=== PATIENT | male | born 1960 | race African-American/Black ===

== ENCOUNTER → 2018-08-07 09:40 | Outpatient (CLI) | payer MEDICAID, SELFPAY ==
[2018-08-07 11:02] LABS: Erythrocyte Sedimentation Rate 3 mm/hr (0-20)
== END ==
PROVIDERS: Family Provider Family Medicine; PCP Family Medicine; Referring Provider Psychiatry & Neurology Neurology; Visit Provider Psychiatry & Neurology Neurology
DX: R51 Headache (principal)
CPT/HCPCS: 36415; 85652

== ENCOUNTER → 2018-08-27 06:50 | Outpatient (CLI) | payer MEDICAID, SELFPAY ==
--- NOTE | 2018-08-27 07:17 | MRI_ITS ---
STUDY: MRI BRAIN WITHOUT CONTRAST REASON FOR EXAM: Male, 58 years old. Headaches TECHNIQUE: Standardized multiplanar fat and water weighted pulse sequences were obtained. COMPARISON: CT head 07/10/2016. FINDINGS: There is mild cerebral atrophy with widening of the extra-axial spaces and ventricular dilatation. There are a limited number of small white matter hyperintensities, distributed throughout the deep white matter tracts of the cerebral hemispheres, consistent with mild chronic white matter ischemic changes. Normal bilateral basal ganglia. Normal thalami. There is no extra-axial fluid accumulation. Normal flow voids within the major intracranial circulation suggesting patency by spin echo criteria. Normal sella turcica, pituitary gland, infundibular stalk, optic chiasm and hypothalamus. Normal tectal plate and pineal gland. Normal midbrain, joaquin and medulla. Normal cerebellum. Normal basal cisterns. Normal bilateral temporal bones. Normal bilateral internal auditory canals. No demonstrated orbital abnormality, within the constraints of a routine brain study. There is a small right maxillary sinus retention cyst. Normal calvarium and skull base. Normal visualized soft tissue structures. Normal visualized upper cervical spine. MRI/Brain without Contrast IMPRESSION: No acute intracranial abnormality. Mild chronic involutional changes. Electronically Signed: Sharon Alexis, at 12:51 EDT Tel , Service support ,
== END ==
PROVIDERS: Family Provider Family Medicine; PCP Family Medicine; Referring Provider Psychiatry & Neurology Neurology; Visit Provider Psychiatry & Neurology Neurology
DX: R51 Headache (principal)
CPT/HCPCS: 70551

== ENCOUNTER → 2021-11-29 | Outpatient (REF) | payer SELFPAY | END | disposition home or self-care (01) | LOC: OLS.AHA 10:13 | PROVIDERS: PCP Family Medicine; Visit Provider Family Medicine | DX: E72.20 Disorder of urea cycle metabolism, unspecified (principal) | CPT/HCPCS: 82140 ==

== ENCOUNTER 2023-09-30 19:50 | Observation (INO) | payer MEDICAID, SELFPAY ==
[2023-09-30 19:53] VITALS: BP 130/67; PULSE 92; RESP 18; TEMP 36.4; O2SAT 98; BMI 50.1
[2023-09-30] MEDS: MethylPREDNISolone 125 MG/2 ML Vial IV (20:13)
[2023-09-30] MEDS: Famotidine 200 MG/20 ML MDV 20 MG in 0.9% Normal Saline (Pres. free 8 ML 300 MG IV (20:14)
[2023-09-30] MEDS: 0.9% Normal Saline (1000mL) 1,000 ML 150 ML IV (20:14)
[2023-09-30 20:17] LABS: Absolute Lymphocyte Count 3.07 X10^3/uL (0.83-4.51); Absolute Neutrophil Count 4.8 X10^3/uL (2.0-7.7); Basophil# 0.02 X10^3/uL; Basophil% 0.2 % (0-1); Eosinophil# 0.18 X10^3/uL; Eosinophils% 2.1 % (0-5); Hematocrit 38.8 % (40-54); Hemoglobin 12.3 g/dL (13.0-16.5); Lymphocyte # 3.07 X10^3/ul (0.83-4.51); Lymphocyte % 35.2 % (19-41); Mean Corp Hgb Conc 31.7 g/dL (32-36); Mean Corpuscular Hgb 31.9 pg (27.0-32.0); Mean Corpuscular Volume 100.8 fL (80-94); Mean Platelet Vol. 8.5 fl (6.2-12.0); Monocyte# 0.65 X10^3/uL; Monocyte% 7.4 % (0-10); NRBC Flagged by Analyzer 0 % (0-5); Neutrophil # 4.79 X10^3/uL (2.7-7.7); Neutrophil % 54.9 % (47-70); Platelet Count 274 K/mm3 (150-450); RBC Distribution Width CV 13.4 % (11.6-14.6); RBC Distribution Width SD 49.9 fl (35.1-43.9); Red Blood Count 3.85 M/mm3 (4.6-6.2); White Blood Count 8.7 K/mm3 (4.4-11.0)
[2023-09-30 20:31] LABS: Anion Gap 2 (5-15); BUN 16 mg/dL (7-18); BUN/Creat Ratio 14.3 RATIO (10-20); Calcium,Total 8.9 mg/dL (8.5-10.1); Chloride 106 mmol/L (98-107); Creatinine, Serum 1.12 mg/dL (0.70-1.30); EST Glomerular Filtration Rate 71 mL/min (>60); Est Glom Filt Rate - Afr Amer 86 mL/min (>60); Estimated Creatinine Clearance 86.74 ml/min; Glucose 107 mg/dL (74-106); Potassium 4.2 mmol/L (3.5-5.1); Sodium Level 136 mmol/L (136-145)
--- NOTE | 2023-09-30 20:36 | EDS_ITS ---
HPI History of Present Illness Chief Complaint: Allergic Reaction Informant: patient and SNF Narrative Narrative: Patient presents via EMS from [facility] secondary to facial swelling and hives. Patient reportedly ate dinner around 5:30 PM. He had fish, coleslaw, and peaches. Shortly after eating dinner staff member who is with him noted some swelling over his cheeks and lips on his face. He developed hives on his trunk. Patient was given 50 mg of p.o. Benadryl and transported via EMS. Patient arrives here at approximately 8 PM with continued swelling to his lower face to include upper and lower lip. He does not have significant tongue edema. He is tolerating secretions and is speaking without difficulty. Patient is also noted to be on lisinopril. Nursing staff notes that the hives on his lower back and abdomen are already improving. [facility] Medical History Acute insomnia Anemia Bipolar 2 disorder Chronic tension headache Conduct disorder, childhood onset type COPD (chronic obstructive pulmonary disease) Cutaneous abscess of neck Delusional disorder Diabetes mellitus Essential hypertension Hyperlipemia Hyperlipidemia Impulse disorder Major depressive disorder Mild intellectual disability Morbid obesity Need for assistance with personal care Paranoid schizophrenia Paraphilia, unspecified Peripheral vascular disease Primary open angle glaucoma Schizoaffective disorder Unspecified atherosclerosis of [place] arteries of extremities, unspecified extremity Allergy/AdvReac Type Severity Reaction Status Date / Time No Known Allergies Allergy Verified 09/30/23 19:58 Social History Smoking Status: Current every day smoker tobacco type: cigarettes ROS ROS ED Constitutional Constitutional ED: Denies fever(s) Eyes Eyes: Denies change in vision ENT ENT ED: Denies rhinorrhea Cardiovascular Cardiovascular: Denies chest pain Respiratory/Chest Respiratory/Chest: Denies cough or dyspnea Gastrointestinal Gastrointestinal: Denies abdominal pain Integumentary Reports rash Neurologic Neurologic: Denies headache(s) EXAM Physical Exam Const Vital Signs: 09/30/23 19:53 Temperature 97.5 F L Temperature Source Temporal Pulse Rate 92 Respiratory Rate 18 Blood Pressure 130/67 H Blood Pressure Mean 88 Pulse Ox 98 Oxygen Delivery Method Room Air Positive obese Nutritional Appearance: obese HEENT HEENT Narrative: Edema of the lower face including the upper and lower lips. No significant skin erythema or warmth noted. I do not appreciate significant tongue edema. Eyes EOMs intact bilaterally Eyes Narrative: Mild edema to the eyelids bilaterally. Chest Wall inspection of chest normal and palpation of chest normal Resp normal respiratory effort and clear to auscultation bilaterally Cardio regular rate and regular rhythm GI non-tender Extremity normal to inspection Skin Skin Narrative: Very faint urticarial lesions noted over the lower back. MDM MDM MDM Narrative Medical decision making narrative: Patient placed on monitoring coordinator. IV line established. Patient given Pepcid and Solu-Medrol here along with IV fluids. Labwork obtained to evaluate for leukocytosis, anemia, and electrolyte derangement. Again, patient was given 50 mg of p.o. Benadryl prior to arrival. Lab Data Attestation: I reviewed the patient's lab results. Labs: Laboratory Results - last 24 hr 09/30/23 19:50 WBC 8.7 RBC 3.85 L Hgb 12.3 L Hct 38.8 L MCV 100.8 H MCH 31.9 MCHC 31.7 L RDW Std Deviation 49.9 H RDW Coeff of [place] 13.4 Plt Count 274 MPV 8.5 Immature Gran % (Auto) 0.200 Neut % (Auto) 54.9 Lymph % (Auto) 35.2 [place] % (Auto) 7.4 Eos % (Auto) 2.1 Baso % (Auto) 0.2 Absolute Neuts (auto) 4.8 Absolute Lymphs (auto) 3.07 Nucleated RBC % 0 Sodium 136 Potassium 4.2 Chloride 106 Carbon Dioxide 28.0 Anion Gap 2 L BUN 16 Creatinine 1.12 Estim Creat Clear Calc 86.74 Est GFR (MDRD) Af Amer 86 Est GFR (MDRD) Non-Af 71 BUN/Creatinine Ratio 14.3 Glucose 107 H Calcium 8.9 Treatment and Re-Evaluation :: CBC was a white count of 8.7 with normal differential. Hemoglobin is 12.3. Chemistry studies unremarkable. Glucose is 107. On repeat evaluation lip swelling seems to be slightly improved. No tongue edema is noted. I will speak with hospitalist regarding observation overnight. Discharge Plan Triage Chief Complaint: Allergic Reaction ED Provider: Steph Mclaughlin Dx/Rx/DC Orders Clinical Impression: Angioedema Primary Care Provider: Rd Garcia Referrals: Rd Garcia MD [Primary Care Provider] - Disposition Disposition: Acute Care Hospital [facility]
--- NOTE | 2023-09-30 20:52 | HP.PCM.HOS_ITS ---
HPI - General General Date of Admission: 09/30/23 Date of Service: 09/30/23 Chief Complaint: Angioedema, hives following meal, possibly food related HPI Narrative The patient is a 63 y/o M w/ PMHx: Morbid Obesity, Schizoaffective disorder/Pa ranoid schizophrenia/Delusional disorder/Anxiety and Depression/Bipolar disorder, COPD, Chronic headaches, HTN, HLD, Mild Intellectual Disability, Chronic anemia, Tobacco use who presents to the [facility] ED on 09/30/23 with history of presenting from skilled facility following dinner intake at approximately 5:30 PM as noted fish, close 1 peaches and immediately following had onset of swelling over his cheeks as well as his lips and eventually developed hives over his trunk with ministration of Benadryl 50 mg p.o. x 1 and EMS call arriving approximately 8 PM the ED with continued swelling to the lower face as well as the upper and lower lips with no significant tongue edema and toleration of secretions and speaking ability maintained. In the ED upon arrival also noted hives over the patient's entire back and abdomen but seem to improve through ED stay. Workup in the ED included T97.5, heart rate 92, BP 130/67, respiratory rate 18, 98% on room air, CBC with WBC 8.7, hemoglobin 12.3, MCV 100.8, platelet 274 without marked shift, BMP with glucose 107 otherwise unremarkable. In the ED patient ministered normal saline, Solu-Medrol 125 mg IV x 1 as well as famotidine 20 mg IV. Acute angioedema, potentially related with lisinopril: Will admit to the PCU to be very cautious given facial involvement and significant oral airway involvement, closely monitor for any intubation needs and airway concerns, will continue IV Solu-Medrol, IV Benadryl as well as IV famotidine to be cautious, will maintain n.p.o. status until clinically improving, hold all concerning medications including lisinopril but given dinner intake and immediate onset following to be cautious would benefit from formal allergy testing with ENT potentially on outpatient basis. Macrocytic anemia, chronic per chart history: Admission hemoglobin 12.3, MCV 100.8, baseline hemoglobin unknown is no previous labs for comparison, will continue to trend CBC to elucidate chronicity. Morbid Obesity: Weight loss and lifestyle changes encouraged. DVT prophylaxis: SCDs. [facility] Medical History Acute insomnia Anemia Bipolar 2 disorder Chronic tension headache Conduct disorder, childhood onset type COPD (chronic obstructive pulmonary disease) Cutaneous abscess of neck Delusional disorder Diabetes mellitus Essential hypertension Hyperlipemia Hyperlipidemia Impulse disorder Major depressive disorder Mild intellectual disability Morbid obesity Need for assistance with personal care Paranoid schizophrenia Paraphilia, unspecified Peripheral vascular disease Primary open angle glaucoma Schizoaffective disorder Unspecified atherosclerosis of [place] arteries of extremities, unspecified extremity Allergy/AdvReac Type Severity Reaction Status Date / Time No Known Allergies Allergy Verified 09/30/23 19:58 Social History Smoking Status: Current every day smoker tobacco type: cigarettes Vital Signs Vital Signs Vital Signs: 09/30/23 19:53 Temperature 97.5 F L Temperature Source Temporal Pulse Rate 92 Respiratory Rate 18 Blood Pressure 130/67 H Blood Pressure Mean 88 Pulse Ox 98 Oxygen Delivery Method Room Air Weight Weight: 292 lb 3.2 oz Body Mass Index (BMI) 50.1 Results Lab / Micro Data 09/30/23 19:50 09/30/23 19:50 Labs: Laboratory Results - last 24 hr 09/30/23 19:50: WBC 8.7, RBC 3.85 L, Hgb 12.3 L, Hct 38.8 L, MCV 100.8 H, MCH 31.9, MCHC 31.7 L, RDW Std Deviation 49.9 H, RDW Coeff of [place] 13.4, Plt Count 274, MPV 8.5, Immature Gran % (Auto) 0.200, Neut % (Auto) 54.9, Lymph % (Auto) 35.2, [place] % (Auto) 7.4, Eos % (Auto) 2.1, Baso % (Auto) 0.2, Absolute Neuts (auto) 4.8, Absolute Lymphs (auto) 3.07, Nucleated RBC % 0, Sodium 136, Potassium 4.2, Chloride 106, Carbon Dioxide 28.0, Anion Gap 2 L, BUN 16, Creatinine 1.12, Estim Creat Clear Calc 86.74, Est GFR (MDRD) Af Amer 86, Est GFR (MDRD) Non-Af 71, BUN/Creatinine Ratio 14.3, Glucose 107 H, Calcium 8.9
--- NOTE | 2023-09-30 20:52 | PCM.HP.STD ---
HPI - General General Date of Admission: 09/30/23 Date of Service: 09/30/23 Chief Complaint: Angioedema, hives following meal, possibly food related HPI Narrative The patient is a 63 y/o M w/ PMHx: Morbid Obesity, Schizoaffective disorder/Paranoid schizophrenia/Delusional disorder/Anxiety and Depression/Bipolar disorder, COPD, Chronic headaches, HTN, HLD, Mild Intellectual Disability, Chronic anemia, Tobacco use who presents to the [facility] ED on 09/30/23 with history of presenting from skilled facility following dinner intake at approximately 5:30 PM as noted fish, close 1 peaches and immediately following had onset of swelling over his cheeks as well as his lips and eventually developed hives over his trunk with ministration of Benadryl 50 mg p.o. x 1 and EMS call arriving approximately 8 PM the ED with continued swelling to the lower face as well as the upper and lower lips with no significant tongue edema and toleration of secretions and speaking ability maintained. In the ED upon arrival also noted hives over the patient's entire back and abdomen but seem to improve through ED stay. Staff from the facility is present and does state that he had some kind of fish or potentially shellfish kalyn for dinner but they are uncertain. Discussed at length and recommended they obtain this information. Workup in the ED included T97.5, heart rate 92, BP 130/67, respiratory rate 18, 98% on room air, CBC with WBC 8.7, hemoglobin 12.3, MCV 100.8, platelet 274 without marked shift, BMP with glucose 107 otherwise unremarkable. In the ED patient ministered normal saline, Solu-Medrol 125 mg IV x 1 as well as famotidine 20 mg IV. [facility] Medical History (Updated 09/30/23 @ 21:[address] Daisy Gibson MD) Anemia Bipolar 2 disorder Chronic tension headache Conduct disorder, childhood onset type COPD (chronic obstructive pulmonary disease) Cutaneous abscess of neck Delusional disorder Diabetes mellitus Essential hypertension Hyperlipemia Hyperlipidemia Impulse disorder Major depressive disorder Mild intellectual disability Morbid obesity Need for assistance with personal care Paranoid schizophrenia Paraphilia, unspecified Peripheral vascular disease Primary open angle glaucoma Schizoaffective disorder Unspecified atherosclerosis of [place] arteries of extremities, unspecified extremity Allergy/AdvReac Type Severity Reaction Status Date / Time No Known Allergies Allergy Verified 09/30/23 19:58 unable to obtain (Patient does not know his family history nor does staff from his facility.) Surgical History (Updated 09/30/23 @ 21:[address] Daisy Gibson MD) No history of previous surgery Social History (Updated 09/30/23 @ 21:[address] Daisy Gibson MD) household members: none housing: other details: Skilled facility. Smoking Status: Current every day smoker tobacco type: cigarettes Smoking packs per day: 0.5 Smoking cigarettes per day: 10.0 alcohol intake: never substance use type: does not use ROS ROS Narrative Admission Review of Systems: CONSTITUTIONAL: No weight loss, fever, chills, weakness or fatigue. HEENT: + Upper and lower lip swelling as well as cheek/facial swelling. No oropharynx swelling or swelling of the tongue. Eyes: No visual loss, blurred vision, double vision or yellow sclerae. Ears, Nose, Throat: No hearing loss, sneezing, congestion, runny nose or sore throat. SKIN: No rash or itching, lesions, wounds. CARDIOVASCULAR: No chest pain, chest pressure or chest discomfort, palpitations, edema, orthopnea, syncopal events. RESPIRATORY: No shortness of breath, cough or sputum, wheezing, hemoptysis. GASTROINTESTINAL: No anorexia, nausea, vomiting or diarrhea, abdominal pain, melena, BRBPR. GENITOURINARY: No dysuria, frequency, urgency or retention. NEUROLOGICAL: + Chronic mild intellectual disability/delay. No headache, dizziness, syncope, paralysis, ataxia, numbness or tingling in the extremities, focal weakness, change in bowel or bladder control, seizure. MUSCULOSKELETAL: No muscle, back pain, joint pain or stiffness. HEMATOLOGIC: + Chronic anemia, no specific history of easy bleeding/bruising. LYMPHATICS: No enlarged nodes. No history of splenectomy. PSYCHIATRIC: + Significant psychiatric history with Schizoaffective disorder/Paranoid schizophrenia/Delusional disorder/Anxiety and Depression/Bipolar disorder. ENDOCRINOLOGIC: No reports of sweating, cold or heat intolerance. No polyuria or polydipsia. ALLERGIES: No history of asthma, hives, eczema or rhinitis. Vital Signs Vital Signs Vital Signs: 09/30/23 19:53 Temperature 97.5 F L Temperature Source Temporal Pulse Rate 92 Respiratory Rate 18 Blood Pressure 130/67 H Blood Pressure Mean 88 Pulse Ox 98 Oxygen Delivery Method Room Air Weight Weight: 292 lb 3.2 oz Body Mass Index (BMI) 50.1 Physical Exam Narrative Physical Examination: General: Awake, alert, oriented to self, place and recent events, does have chronic intellectual delay with notable underlying psychiatric history, remains cooperative, seated upright in the ED bed, no acute distress, denies any significant itching or difficulty with his airway and is already asking for food. Skin: Normal color, normal turgor, no icterus, no cyanosis except for recent hives to the torso which have already started to improve. HEENT: AT/NC, EOMI, PERRLA, mildly dry MM, notable upper and lower lip swelling as well as cheek swelling but the oropharynx is unaffected and the tongue is normal size, no carotid bruits, difficult to discern JVD given swelling of the lower cheek and upper neck region as well as habitus. Lungs: Diminished, greater bases, appropriate effort, no rales, ronchi or wheezing. Heart: Regular rate and rhythm; no gallop, rub audible. Abdomen: Soft, morbidly obese, NTTP, distant bowel sounds, difficult to determine distention and HSM given habitus. Extremities: No cyanosis, no clubbing, chronic lower extremity edema. Neurological: Patient awake, alert, oriented as noted, cognitive function decreased baseline with underlying intellectual delay but appears currently baseline intact; pupils equally reactive to light and accommodation, cranial nerves grossly normal, moving all 4 extremities, no focal deficits, strength preserved. Psychiatric: Affect appears normal, asking for food, seems unaffected by his current status, no acute evidence of depressive or anxiety feelings but does have significant underlying psychiatric history. Results Lab / Micro Data 09/30/23 19:50 09/30/23 19:50 Labs: Laboratory Results - last 24 hr 09/30/23 19:50: WBC 8.7, RBC 3.85 L, Hgb 12.3 L, Hct 38.8 L, MCV 100.8 H, MCH 31.9, MCHC 31.7 L, RDW Std Deviation 49.9 H, RDW Coeff of [place] 13.4, Plt Count 274, MPV 8.5, Immature Gran % (Auto) 0.200, Neut % (Auto) 54.9, Lymph % (Auto) 35.2, [place] % (Auto) 7.4, Eos % (Auto) 2.1, Baso % (Auto) 0.2, Absolute Neuts (auto) 4.8, Absolute Lymphs (auto) 3.07, Nucleated RBC % 0, Sodium 136, Potassium 4.2, Chloride 106, Carbon Dioxide 28.0, Anion Gap 2 L, BUN 16, Creatinine 1.12, Estim Creat Clear Calc 86.74, Est GFR (MDRD) Af Amer 86, Est GFR (MDRD) Non-Af 71, BUN/Creatinine Ratio 14.3, Glucose 107 H, Calcium 8.9 Assessment & Plan Assessment/Plan (1) Angioedema: PLAN: Plan The patient is a 63 y/o M w/ PMHx: Morbid Obesity, Schizoaffective disorder/Paranoid schizophrenia/Delusional disorder/Anxiety and Depression/Bipolar disorder, COPD, Chronic headaches, HTN, HLD, Mild Intellectual Disability, Chronic anemia, Tobacco use who presents to the [facility] ED on 09/30/23 with history of presenting from skilled facility following dinner intake at approximately 5:30 PM as noted fish, close 1 peaches and immediately following had onset of swelling over his cheeks as well as his lips and eventually developed hives over his trunk with ministration of Benadryl 50 mg p.o. x 1 and EMS call arriving approximately 8 PM the ED with continued swelling to the lower face as well as the upper and lower lips with no significant tongue edema and toleration of secretions and speaking ability maintained. #1. Acute angioedema, potentially related with lisinopril versus food given the fact that not only is angioedema present but also hives to the torso present: Will admit to the PCU to be cautious given facial involvement, airway appears well with no swelling of the tongue, will continue IV Solu-Medrol, IV Benadryl as well as IV famotidine to be cautious, will maintain n.p.o. status until assure continued clinical improving, hold all concerning medications including lisinopril but given dinner intake and immediate onset following in addition to notable hives to be cautious would benefit from formal allergy testing with ENT potentially on outpatient basis. Encourage staff to obtain information on recent food intake. #2. Macrocytic anemia, chronic per chart history: Admission hemoglobin 12.3, MCV 100.8, baseline hemoglobin unknown is no previous labs for comparison, will continue to trend CBC to elucidate chronicity. #3. Hypertension: Verified the patient was on lisinopril which we held and labeled as an allergy to be cautious. Awaiting further clarification of his medications and in the interim will maintain on PRN hydralazine. #4. Hyperlipidemia: Unclear what patient medications are specifically, awaiting for clarification from skilled facility. #5. Chronic COPD: Will maintain on ATC budesonide therapy, PRN albuterol, HOB, IS parameters. #6. Schizoaffective disorder/Paranoid schizophrenia/Delusional disorder/Anxiety and Depression/Bipolar disorder complicated by mild Intellectual Disability: Awaiting further clarification of patient medications from facility, will continue once reviewed. #7. Tobacco Abuse: Encouraged cessation, inpatient consultation per RT, NR if desired. #8. Morbid Obesity: Weight loss and lifestyle changes encouraged. #9. DVT prophylaxis: SCDs. #10. CODE status: Patient's guardian is his brother from review of skilled facility records. CODE STATUS from facility DNR-CCA, no intubation, will maintain Charges/Coding Visit Charges Inpatient E&M: 37931 Init Hosp L2
[2023-09-30 21:51] VITALS: BP 132/98; PULSE 65; RESP 16; TEMP 36.8; O2SAT 100
--- NOTE | 2023-09-30 23:02 | ED.RN ---
called report to REENA Duncan at this time
[2023-09-30 23:14] VITALS: BMI 43.0
[2023-09-30 23:17] VITALS: BP 163/89; PULSE 75; RESP 18; TEMP 36.9; O2SAT 98
[2023-09-30] MEDS: 0.9% Normal Saline (1000mL) 1,000 ML 100 ML IV (23:44)
[2023-10-01] MEDS: DiphenhydrAMINE 50 MG/ML Syringe 25 MG IV ×3 (00:28→14:49)
[2023-10-01] MEDS: 0.9% Saline Lock 10 ML Syringe IV (00:34)
[2023-10-01 00:54] LABS: Bedside Glucose 140 mg/dL (74-106)
[2023-10-01 04:19] VITALS: BP 128/82; PULSE 88; RESP 16; TEMP 36.6; O2SAT 97
[2023-10-01 06:00] VITALS: BMI 44.1
[2023-10-01 06:28] LABS: Absolute Lymphocyte Count 0.82 X10^3/uL (0.83-4.51); Absolute Neutrophil Count 7.6 X10^3/uL (2.0-7.7); Basophil# 0.01 X10^3/uL; Basophil% 0.1 % (0-1); Hemoglobin 12.7 g/dL (13.0-16.5); Lymphocyte # 0.82 X10^3/ul (0.83-4.51); Lymphocyte % 9.6 % (19-41); Mean Corp Hgb Conc 31.8 g/dL (32-36); Mean Corpuscular Hgb 31.2 pg (27.0-32.0); Mean Corpuscular Volume 98.3 fL (80-94); Mean Platelet Vol. 8.7 fl (6.2-12.0); Monocyte# 0.09 X10^3/uL; Monocyte% 1.1 % (0-10); NRBC Flagged by Analyzer 0 % (0-5); Neutrophil # 7.62 X10^3/uL (2.7-7.7); Neutrophil % 88.8 % (47-70); Platelet Count 285 K/mm3 (150-450); RBC Distribution Width CV 13.2 % (11.6-14.6); RBC Distribution Width SD 47.9 fl (35.1-43.9); Red Blood Count 4.07 M/mm3 (4.6-6.2); White Blood Count 8.6 K/mm3 (4.4-11.0)
[2023-10-01 06:52] LABS: ALB/GLOB Ratio 0.9 RATIO (0.9-2.4); AST(SGOT) 18 U/L (15-37); Alanine Aminotransfer ALT/SGPT 27 U/L (16-61); Albumin, Serum 3.3 g/dL (3.2-5.0); Alkaline Phosphatase 53 U/L (45-117); Anion Gap 7 (5-15); BUN 14 mg/dL (7-18); BUN/Creat Ratio 14.1 RATIO (10-20); Chloride 109 mmol/L (98-107); Creatinine, Serum 0.99 mg/dL (0.70-1.30); EST Glomerular Filtration Rate 81 mL/min (>60); Est Glom Filt Rate - Afr Amer 98 mL/min (>60); Estimated Creatinine Clearance 105.53 ml/min; Globulin 3.8 g/dL (2.2-4.2); Glucose 176 mg/dL (74-106); Potassium 4.1 mmol/L (3.5-5.1); Protein, Total 7.1 g/dL (6.4-8.2); Sodium Level 137 mmol/L (136-145)
[2023-10-01 07:19] LABS: Bedside Glucose 142 mg/dL (74-106)
[2023-10-01 07:40] VITALS: O2SAT 94
[2023-10-01 08:50] VITALS: BP 110/74; PULSE 94; RESP 16; TEMP 36.6; O2SAT 96
[2023-10-01] MEDS: Aspirin E.C. 81 MG Tablet PO (09:20)
[2023-10-01] MEDS: Verapamil SR 240 MG Tablet PO (09:20)
[2023-10-01] MEDS: traZODone 100 MG Tablet PO (09:20)
[2023-10-01] MEDS: Citalopram 20 MG Tablet PO ×2 (09:20→09:21)
[2023-10-01] MEDS: Benztropine Mesylate 0.5 MG TABLET 1 MG PO (09:20)
[2023-10-01] MEDS: Folic Acid 1 MG Tablet 0.5 MG PO (09:20)
[2023-10-01] MEDS: Lithium Carbonate 150 MG Capsule PO ×2 (09:28→14:50)
[2023-10-01] MEDS: Haloperidol 1 MG Tablet 2 MG PO ×2 (09:29→14:50)
[2023-10-01] MEDS: Haloperidol 1 MG Tablet PO ×2 (09:29→14:50)
[2023-10-01] MEDS: clonazePAM 0.5 MG Tablet PO ×2 (09:29→14:56)
--- NOTE | 2023-10-01 09:33 | CASEMGMT ---
Patient is from [facility]. Patient also has a legal guardian. Ermelinda GRAY
[2023-10-01] MEDS: 0.9% Normal Saline (1000mL) 1,000 ML 100 ML IV (09:42)
[2023-10-01] MEDS: Timolol 0.5% 5ML OPTH.BTL 1 DRP EACH EYE (09:45)
[2023-10-01] MEDS: Fluticasone 0.05% 1 SPRAY NASAL.SRY 2 SPRAY NASAL (09:45)
--- NOTE | 2023-10-01 09:49 | CASEMGMT ---
ELSY spoke with patient's legal guardian Nadiya. SW confirmed the plan is for patient to return to [facility] when ready for discharge. Plan: d/c back to [facility] under intermediate level of care. Ermelinda GRAY
[2023-10-01] MEDS: Famotidine 200 MG/20 ML MDV 20 MG in 0.9% Normal Saline (Pres. free 8 ML 300 MG IV (09:50)
[2023-10-01] MEDS: BRIMONIDINE 0.2% 5ML BOTTLE 1 DRP EACH EYE (09:56)
[2023-10-01 12:06] LABS: Bedside Glucose 139 mg/dL (74-106)
[2023-10-01] MEDS: Latanoprost 0.005% 1 Bottle 1 DRP EACH EYE (12:35)
--- NOTE | 2023-10-01 13:46 | PCM.TXEXTCAR ---
Diet Diet Order/Speech Therapy: 10/01/23 11:43 Diet: Cardiac - Heart Healthy Is pt able to select menu?: Yes Routine Orders/Code Status Suppository Frequency: Daily PRN O2 Frequency: PRN Keep PO Greater than or Equal to (%): 89 Routine Lab Work: CBC (prn) and BMP (prn) Code Status: DNRCC-A (NO ETT) Therapies Weight Bearing: Full weight bearing Problem/Diagnosis (1) Angioedema: Status: Acute Code(s): T78.3XXA - Angioneurotic edema, initial encounter Allergies/Procedures Done in Hospital Allergies lisinopril Allergy (Severe, Verified 10/01/23 01:56) Angioedema Atypical presentation as had upper and lower lip/facial angioedema but also had diffuse hives on chest and back. Still some concern food related. Type of Care/Length of Stay Estimated LOS: More Than 30 Days Type of Care Needed: Assisted/Assisted Living Rehab Potential: Fair Prognosis: Fair Additional Orders/Day of Discharge Day of Discharge: 10/01/23 Follow Up Care Please follow up with your Primary Care Physician in: 2-4 weeks Discharge Plan Admission Admit Date/Time: 09/30/23 20:54 Attending Provider: Christi Cottrell Primary Care Provider: Rd Garcia Consulting Providers: Daisy Gibson Discharge Orders/Prescriptions Prescriptions: No Action aspirin [Adult Aspirin Regimen] 81 mg tablet,delayed release (DR/EC) 81 mg PO DAILY lorazepam [Ativan] 2 mg/mL solution 1 mg IM Q6H PRN (Reason: agitation) lorazepam [Ativan] 1 mg tablet 1 mg PO Q6H PRN (Reason: agitation) Patient Comments: Give with PO Fluphenazine benztropine 1 mg tablet 1 mg PO DAILY citalopram [Celexa] 20 mg tablet 20 mg PO DAILY clonazepam 0.5 mg tablet,disintegrating 0.5 mg PO TID brimonidine-timolol [Combigan] 0.2-0.5 % drops 1 drp EACH EYE BID fluphenazine HCl 2.5 mg/mL solution 2.5 mg IM Q6H Rx Instructions: to be given with IM ativan fluphenazine HCl 2.5 mg tablet 2.5 mg PO Q6H PRN (Reason: agitation) Rx Instructions: TO BE GIVEN WITH ATIVAN PO folic acid 400 mcg tablet 400 mcg PO DAILY haloperidol 2 mg tablet 2 mg PO TID haloperidol 1 mg tablet 1 mg PO TID latanoprost 0.005 % drops 1 drp EACH EYE DAILY atorvastatin 40 mg tablet 40 mg PO QHS lisinopril 5 mg tablet 5 mg PO DAILY lithium carbonate 450 mg tablet extended release 450 mg PO DAILY magnesium hydroxide [Milk of Magnesia] 400 mg/5 mL suspension 30 ml PO DAILY PRN (Reason: constipation) nicotine (polacrilex) 2 mg mini lozenge 2 mg buccal Q6H PRN (Reason: nicotine cravings) Rx Instructions: Give 1 lozenge Q2H PRN, do not exceed 8 lozenges per day nicotine 10 mg cartridge See Rx Instructions inhalation .COMPLEX PRN (Reason: cravings) Rx Instructions: 1 insert inhale orally every 2 hours as needed for smoking alternative. Do not exceed 8 cartridges per day. inhaled PRN; medroxyprogesterone [Provera] 5 mg tablet 5 mg PO DAILY Senna Plus 8.6-50 mg capsule 2 tab-cap PO QHS trazodone 100 mg tablet 100 mg PO DAILY acetaminophen [Tylenol Extra Strength] 500 mg tablet 500 mg PO Q4H PRN (Reason: fever or pain) verapamil 240 mg capsule,ext rel. pellets 24 hr 240 mg PO DAILY cholecalciferol (vitamin D3) 1,250 mcg (50,000 unit) capsule 1,250 mcg PO TU bisacodyl [Gentle Laxative (bisacodyl)] 10 mg suppository 10 mg [place] DAILY PRN (Reason: constipation) fluticasone propionate [24 Hour Allergy Relief] 50 mcg/actuation spray,suspension 2 spray intranasal DAILY Rx Instructions: administer into each nostril lorazepam 2 mg/mL syringe 1 mg IM Q6H PRN (Reason: agitation) Rx Instructions: To be given with Fluphenazine cimetidine [Tagamet HB] 200 mg tablet 400 mg PO BID Rx Instructions: administer with meals Rocklatan 0.02-0.005 % drops 1 drp EACH EYE QHS lorazepam 2 mg/mL syringe 1 mg IM Q6H PRN (Reason: agitation) Rx Instructions: to be given with Fluphenazine IM fluphenazine HCl 10 mg tablet 10 mg PO QHS fluphenazine HCl 5 mg tablet 5 mg PO QHS Patient Comments: Patient takes a 10mg tablet and 5 mg table to equal 15mg total fluphenazine HCl 10 mg tablet 10 mg PO DAILY alum-mag hydroxide-simeth 200-200-20 mg/5 mL suspension 30 ml PO Q4H PRN (Reason: heartburn) Referrals / Follow Up: Rd Garcia MD [Primary Care Provider] -
--- NOTE | 2023-10-01 13:50 | DS.PCM_ITS ---
Providers Date of Admission: 09/30/23 Date of Discharge: 10/01/23 Primary Care Physician: Dr. Rd Garcia MD Reason For Visit: ANGIOEDEMA, HIVES, POSSIBLE ACEI VERSUS Diagnosis Discharge Diagnosis (1) Angioedema: Status: Acute Code(s): T78.3XXA - Angioneurotic edema, initial encounter Medications at Discharge Home Medications acetaminophen 500 mg tablet (Tylenol Extra Strength) 500 mg PO Q4H PRN fever or pain 09/30/23 aspirin 81 mg tablet,delayed release (Adult Aspirin Regimen) 81 mg PO DAILY heart health 09/30/23 atorvastatin 40 mg tablet 40 mg PO QHS cholesterol 09/30/23 benztropine 1 mg tablet 1 mg PO DAILY PREVENTION OF SIDE EFFECTS OF EPS 09/30/23 bisacodyl 10 mg rectal suppository (Gentle Laxative (bisacodyl)) 10 mg LA DAILY PRN constipation 09/30/23 brimonidine 0.2 %-timolol 0.5 % eye drops (Combigan) 1 drp EACH EYE BID ABSOLUTE GLAUCOMA 09/30/23 cholecalciferol (vitamin D3) 1,250 mcg (50,000 unit) capsule 1,250 mcg PO TU vitamin 09/30/23 citalopram 20 mg tablet (Celexa) 20 mg PO DAILY MAJOR DEPRESSIVE DISEASE 09/30/23 clonazepam 0.5 mg disintegrating tablet 0.5 mg PO TID ANXIETY 09/30/23 fluphenazine HCl 2.5 mg tablet 2.5 mg PO Q6H PRN agitation 09/30/23 fluphenazine HCl 2.5 mg/mL injection solution 2.5 mg IM Q6H AGITATION 09/30/23 fluticasone propionate 50 mcg/actuation nasal spray,suspension (24 Hour Allergy Relief) 2 spray intranasal DAILY 09/30/23 folic acid 400 mcg tablet 400 mcg PO DAILY 09/30/23 haloperidol 1 mg tablet 1 mg PO TID 09/30/23 haloperidol 2 mg tablet 2 mg PO TID 09/30/23 latanoprost 0.005 % eye drops 1 drp EACH EYE DAILY 09/30/23 lithium carbonate 450 mg tablet,extended release 450 mg PO DAILY 09/30/23 lorazepam 1 mg tablet (Ativan) 1 mg PO Q6H PRN agitation 09/30/23 lorazepam 2 mg/mL injection solution (Ativan) 1 mg IM Q6H PRN agitation 09/30/23 lorazepam 2 mg/mL injection syringe 1 mg IM Q6H PRN agitation 09/30/23 magnesium hydroxide 400 mg/5 mL oral suspension (Milk of Magnesia) 30 ml PO DAILY PRN constipation 09/30/23 medroxyprogesterone 5 mg tablet (Provera) 5 mg PO DAILY 09/30/23 nicotine (polacrilex) 2 mg buccal mini lozenge 2 mg buccal Q6H PRN nicotine cravings 09/30/23 nicotine 10 mg inhalation cartridge See Rx Instructions inhalation .COMPLEX PRN cravings 09/30/23 sennosides 8.6 mg-docusate sodium 50 mg capsule (Senna Plus) 2 tab-cap PO QHS 09/30/23 trazodone 100 mg tablet 100 mg PO DAILY 09/30/23 verapamil 240 mg 24 hr capsule,extended release 240 mg PO DAILY 09/30/23 aluminum-mag hydroxide-simethicone 200 mg-200 mg-20 mg/5 mL oral susp 30 ml PO Q4H PRN heartburn 10/01/23 amlodipine 5 mg tablet 5 mg PO DAILY #30 tabs 10/01/23 cimetidine 200 mg tablet (Tagamet HB) 400 mg PO BID GI ulcers 10/01/23 fluphenazine HCl 10 mg tablet 10 mg PO DAILY mental health 10/01/23 fluphenazine HCl 10 mg tablet 10 mg PO QHS schizophrenia 10/01/23 fluphenazine HCl 5 mg tablet 5 mg PO QHS mental health 10/01/23 lorazepam 2 mg/mL injection syringe 1 mg IM Q6H PRN agitation 10/01/23 netarsudil 0.02 %-latanoprost 0.005 % eye drops (Rocklatan) 1 drp EACH EYE QHS 10/01/23 prednisone 10 mg tablet 10 mg PO DAILY #20 tabs 10/01/23 Hospital Course Operations None Procedures None Summary of Care Provided Minutes Spent on Discharge: 25 Hospital Course: Mr. Farah is a 63-year-old [facility] who [facility] to the emergency department at [facility] on 09/30/2023 with angioedema and hives following a meal. Dinner was about 530 and it was fish. He also had some peaches and then immediately had onset of swelling over his cheeks and lips as well as hives over his trunk. He was given Benadryl 50 mg oral x 1 dose in the squad was called arriving at about 8 PM. He continued to have swelling to the lower part of his face and his upper and lower lips with no significant tongue edema so he was transferred to the emergency department. Upon arrival he was maintaining his airway without any significant difficulty maintaining secretions however he was noted to have swelling. Given this it was recommended that he be admitted to the hospital. He is on lisinopril as well at baseline. Vital signs on presentation were unremarkable and he was on room air at 98%. CBC was unremarkable. BMP was unremarkable. In the emergency department he was given IV fluids, Solu-Medrol 125 mg IV x 1 as well as IV famotidine and admitted to the floor for ongoing monitoring. By the a.m. of 10/01/2023 his edema had completely resolved and he denied having a rash. No hives were noted on exam and no swelling was noted on his tongue or lips/face. We started a p.o. diet which she tolerated well without any difficulty and felt that he could be discharged back to his [facility]CF. We did send him with continued antihistamines as he is on some editing at baseline and a steroid taper over the next 8 days. We discontinued his lisinopril and substituted amlodipine to help with his blood pressure. Amlodipine 5 mg daily is to be continued and I have advised that he follow-up with his primary care physician within next couple weeks for blood pressure check. He is able to be discharged in stable condition on 10/01/2023. Discharge diagnoses: Angioedema-resolved Hives-resolved Hypertension Chronic macrocytic anemia Hyperlipidemia COPD Schizoaffective disorder Paranoid schizophrenia Delusional disorder Intellectual disability Anxiety depression Delusional disorder Morbid obesity Tobacco abuse Physical Exam Const alert, oriented x3, no apparent distress and well nourished; Negative for average body habitus, no limitations or healthy appearing Constitutional Narrative: Morbidly obese, middle-aged, white male, lying in bed, appears comfortable nontoxic General Appearance: cooperative, comfortable, well kempt and well developed Orientation / Consciousness: awake, oriented to person, oriented to place and oriented to time Exam Limitations: no limitations Nutritional Appearance: morbidly obese HEENT normocephalic, head/scalp atraumatic and hearing grossly normal bilaterally HEENT Narrative: Edentulous, Mallampati is 3, no thrush, no edema noted Resp normal respiratory effort, no retractions and no use of accessory muscles Resp Narrative: Few scattered end expiratory wheezes noted that clear with cough Auscultation: wheezes; Negative for rales or rhonchi Cardio regular rate, regular rhythm, S1 normal heart sound, S2 normal heart sound, no murmurs, no rub, no gallops and no clicks GI normal to inspection, nondistended, normoactive bowel sounds, soft to palpation and non-tender Extremity no clubbing, cyanosis or edema Extremity Narrative: Pedal pulses are 2+ Skin no wounds, skin turgor normal and no jaundice Skin Narrative: No rash noted on chest/back or extremities Neuro oriented x3, moves all extremities and no focal motor deficits Speech: speech normal Psych Psych Narrative: Affect is a bit strange, eye contact is good and patient interacts answering questions appropriately Weight / BMI Weight Weight: 135.5 kg Body Mass Index (BMI) 44.1 ABG / Lab / Microbiology Data 10/01/23 06:03 10/01/23 06:03 Laboratory: Laboratory Results - last 24 hr 09/30/23 19:50: WBC 8.7, RBC 3.85 L, Hgb 12.3 L, Hct 38.8 L, MCV 100.8 H, MCH 31.9, MCHC 31.7 L, RDW Std Deviation 49.9 H, RDW Coeff of Cheko 13.4, Plt Count 274, MPV 8.5, Immature Gran % (Auto) 0.200, Neut % (Auto) 54.9, Lymph % (Auto) 35.2, Duval % (Auto) 7.4, Eos % (Auto) 2.1, Baso % (Auto) 0.2, Absolute Neuts (auto) 4.8, Absolute Lymphs (auto) 3.07, Nucleated RBC % 0, Sodium 136, Potassium 4.2, Chloride 106, Carbon Dioxide 28.0, Anion Gap 2 L, BUN 16, Creatinine 1.12, Estim Creat Clear Calc 86.74, Est GFR (MDRD) Af Amer 86, Est GFR (MDRD) Non-Af 71, BUN/Creatinine Ratio 14.3, Glucose 107 H, Calcium 8.9 10/01/23 00:26: POC Glucose 140 H 10/01/23 06:03: WBC 8.6, RBC 4.07 L, Hgb 12.7 L, Hct 40.0, MCV 98.3 H, MCH 31.2, MCHC 31.8 L, RDW Std Deviation 47.9 H, RDW Coeff of Cheko 13.2, Plt Count 285, MPV 8.7, Immature Gran % (Auto) 0.400, Neut % (Auto) 88.8 H, Lymph % (Auto) 9.6 L, Duval % (Auto) 1.1, Eos % (Auto) 0.0, Baso % (Auto) 0.1, Absolute Neuts (auto) 7.6, Absolute Lymphs (auto) 0.82 L, Nucleated RBC % 0, Sodium 137, Potassium 4.1, Chloride 109 H, Carbon Dioxide 21.0, Anion Gap 7, BUN 14, Creatinine 0.99, Estim Creat Clear Calc 105.53, Est GFR (MDRD) Af Amer 98, Est GFR (MDRD) Non-Af 81, BUN/Creatinine Ratio 14.1, Glucose 176 H, Calcium 9.0, Total Bilirubin 0.30, AST 18, ALT 27, Alkaline Phosphatase 53, Total Protein 7.1, Albumin 3.3, Globul in 3.8, Albumin/Globulin Ratio 0.9 10/01/23 06:48: POC Glucose 142 H 10/01/23 11:47: POC Glucose 139 H Meaningful Use Info Meaningful Use Meaningful Use Diagnoses (Choose all that apply): None applicable Ischemic Stroke Statin Dosing Therapy Reference: STATIN DOSE THERAPY REFERENCE: * Patients > 75 years receive moderate or high dose statin therapy. * Patients 75 years or YOUNGER should receive HIGH intensity statin dose unless contraindicated. You will be required to document reason for non-treatment if statin daily dose does not meet guidelines. HIGH DOSE STATIN THERAPY DAILY Atorvastatin > than or = to 40 mg Rosuvastatin > than or = to 20 mg Amlodipine + Atorvastatin > than or = to 2.5/40 mg Ezetimibe + Simvastatin 10/80 mg Simvastatin 80mg Discharge Plan Admission Admit Date/Time: 09/30/23 20:54 Primary Reason for Your Visit: angioedema Attending Provider: Christi Cottrell Primary Care Provider: Rd Garcia Consulting Providers: Daisy Gibson Discharge Orders/Prescriptions Prescriptions: New amlodipine 5 mg tablet 5 mg PO DAILY Qty: 30 0RF prednisone 10 mg tablet 10 mg PO DAILY Qty: 20 0RF Rx Instructions: 4 tablets x 2 days, 3 tablets x 2 days, 2 tablets x 2 days, 1 tablet x 2 days and stop Continued aspirin [Adult Aspirin Regimen] 81 mg tablet,delayed release (DR/EC) 81 mg PO DAILY lorazepam [Ativan] 2 mg/mL solution 1 mg IM Q6H PRN (Reason: agitation) lorazepam [Ativan] 1 mg tablet 1 mg PO Q6H PRN (Reason: agitation) Patient Comments: Give with PO Fluphenazine benztropine 1 mg tablet 1 mg PO DAILY citalopram [Celexa] 20 mg tablet 20 mg PO DAILY clonazepam 0.5 mg tablet,disintegrating 0.5 mg PO TID brimonidine-timolol [Combigan] 0.2-0.5 % drops 1 drp EACH EYE BID fluphenazine HCl 2.5 mg/mL solution 2.5 mg IM Q6H Rx Instructions: to be given with IM ativan fluphenazine HCl 2.5 mg tablet 2.5 mg PO Q6H PRN (Reason: agitation) Rx Instructions: TO BE GIVEN WITH ATIVAN PO folic acid 400 mcg tablet 400 mcg PO DAILY haloperidol 2 mg tablet 2 mg PO TID haloperidol 1 mg tablet 1 mg PO TID latanoprost 0.005 % drops 1 drp EACH EYE DAILY atorvastatin 40 mg tablet 40 mg PO QHS lithium carbonate 450 mg tablet extended release 450 mg PO DAILY magnesium hydroxide [Milk of Magnesia] 400 mg/5 mL suspension 30 ml PO DAILY PRN (Reason: constipation) nicotine (polacrilex) 2 mg mini lozenge 2 mg buccal Q6H PRN (Reason: nicotine cravings) Rx Instructions: Give 1 lozenge Q2H PRN, do not exceed 8 lozenges per day nicotine 10 mg cartridge See Rx Instructions inhalation .COMPLEX PRN (Reason: cravings) Rx Instructions: 1 insert inhale orally every 2 hours as needed for smoking alternative. Do not exceed 8 cartridges per day. inhaled PRN; medroxyprogesterone [Provera] 5 mg tablet 5 mg PO DAILY Senna Plus 8.6-50 mg capsule 2 tab-cap PO QHS trazodone 100 mg tablet 100 mg PO DAILY acetaminophen [Tylenol Extra Strength] 500 mg tablet 500 mg PO Q4H PRN (Reason: fever or pain) verapamil 240 mg capsule,ext rel. pellets 24 hr 240 mg PO DAILY cholecalciferol (vitamin D3) 1,250 mcg (50,000 unit) capsule 1,250 mcg PO TU bisacodyl [Gentle Laxative (bisacodyl)] 10 mg suppository 10 mg [place] DAILY PRN (Reason: constipation) fluticasone propionate [24 Hour Allergy Relief] 50 mcg/actuation spray,suspension 2 spray intranasal DAILY Rx Instructions: administer into each nostril lorazepam 2 mg/mL syringe 1 mg IM Q6H PRN (Reason: agitation) Rx Instructions: To be given with Fluphenazine cimetidine [Tagamet HB] 200 mg tablet 400 mg PO BID Rx Instructions: administer with meals Rocklatan 0.02-0.005 % drops 1 drp EACH EYE QHS lorazepam 2 mg/mL syringe 1 mg IM Q6H PRN (Reason: agitation) Rx Instructions: to be given with Fluphenazine IM fluphenazine HCl 10 mg tablet 10 mg PO QHS fluphenazine HCl 5 mg tablet 5 mg PO QHS Patient Comments: Patient takes a 10mg tablet and 5 mg table to equal 15mg total fluphenazine HCl 10 mg tablet 10 mg PO DAILY alum-mag hydroxide-simeth 200-200-20 mg/5 mL suspension 30 ml PO Q4H PRN (Reason: heartburn) Discontinued lisinopril 5 mg tablet 5 mg PO DAILY Referrals / Follow Up: Rd Garcia MD [Primary Care Provider] - See Referral Note (2 weeks for BP c mitzik) Disposition Disposition (needs filled in before D/C Order can be placed): NonSkilled NH/Intermed Care Charges/Coding Visit Charges Inpatient E&M: 50028 SNF Disch
--- NOTE | 2023-10-01 14:15 | CASEMGMT ---
Patient is ready for discharge back to [facility]. Plan: d/c back to [facility] under fdc care. Physicians will transport patient via cot. Ermelinda GRAY
--- NOTE | 2023-10-01 14:15 | PHA.DC.MR.R ---
Pharmacy [place] Med Reconciliation Pharmacy Service has performed discharge medication reconciliation for this patient. The patient's discharge medication list was reviewed for discrepancies and discrepancies were resolved. Medications at Discharge Home Medications acetaminophen 500 mg tablet (Tylenol Extra Strength) 500 mg PO Q4H PRN fever or pain 09/30/23 aspirin 81 mg tablet,delayed release (Adult Aspirin Regimen) 81 mg PO DAILY heart health 09/30/23 atorvastatin 40 mg tablet 40 mg PO QHS cholesterol 09/30/23 benztropine 1 mg tablet 1 mg PO DAILY PREVENTION OF SIDE EFFECTS OF EPS 09/30/23 bisacodyl 10 mg rectal suppository (Gentle Laxative (bisacodyl)) [address] DAILY PRN constipation 09/30/23 brimonidine 0.2 %-timolol 0.5 % eye drops (Combigan) 1 drp EACH EYE BID ABSOLUTE GLAUCOMA 09/30/23 cholecalciferol (vitamin D3) 1,250 mcg (50,000 unit) capsule 1,250 mcg PO TU vitamin 09/30/23 citalopram 20 mg tablet (Celexa) 20 mg PO DAILY MAJOR DEPRESSIVE DISEASE 09/30/23 clonazepam 0.5 mg disintegrating tablet 0.5 mg PO TID ANXIETY 09/30/23 fluphenazine HCl 2.5 mg tablet 2.5 mg PO Q6H PRN agitation 09/30/23 fluphenazine HCl 2.5 mg/mL injection solution 2.5 mg IM Q6H AGITATION 09/30/23 fluticasone propionate 50 mcg/actuation nasal spray,suspension (24 Hour Allergy Relief) 2 spray intranasal DAILY 09/30/23 folic acid 400 mcg tablet 400 mcg PO DAILY 09/30/23 haloperidol 1 mg tablet 1 mg PO TID 09/30/23 haloperidol 2 mg tablet 2 mg PO TID 09/30/23 latanoprost 0.005 % eye drops 1 drp EACH EYE DAILY 09/30/23 lithium carbonate 450 mg tablet,extended release 450 mg PO DAILY 09/30/23 lorazepam 1 mg tablet (Ativan) 1 mg PO Q6H PRN agitation 09/30/23 lorazepam 2 mg/mL injection solution (Ativan) 1 mg IM Q6H PRN agitation 09/30/23 lorazepam 2 mg/mL injection syringe 1 mg IM Q6H PRN agitation 05/05/24 magnesium hydroxide 400 mg/5 mL oral suspension (Milk of Magnesia) 30 ml PO DAILY PRN constipation 09/30/23 medroxyprogesterone 5 mg tablet (Provera) 5 mg PO DAILY 09/30/23 nicotine (polacrilex) 2 mg buccal mini lozenge 2 mg buccal Q6H PRN nicotine cravings 09/30/23 nicotine 10 mg inhalation cartridge See Rx Instructions inhalation .COMPLEX PRN cravings 09/30/23 sennosides 8.6 mg-docusate sodium 50 mg capsule (Senna Plus) 2 tab-cap PO QHS 09/30/23 trazodone 100 mg tablet 100 mg PO DAILY 09/30/23 verapamil 240 mg 24 hr capsule,extended release 240 mg PO DAILY 09/30/23 aluminum-mag hydroxide-simethicone 200 mg-200 mg-20 mg/5 mL oral susp 30 ml PO Q4H PRN heartburn 10/01/23 amlodipine 5 mg tablet 5 mg PO DAILY #30 tabs 10/01/23 cimetidine 200 mg tablet (Tagamet HB) 400 mg PO BID GI ulcers 10/01/23 fluphenazine HCl 10 mg tablet 10 mg PO DAILY mental health 10/01/23 fluphenazine HCl 10 mg tablet 10 mg PO QHS schizophrenia 10/01/23 fluphenazine HCl 5 mg tablet 5 mg PO QHS mental health 10/01/23 lorazepam 2 mg/mL injection syringe 1 mg IM Q6H PRN agitation 10/01/23 netarsudil 0.02 %-latanoprost 0.005 % eye drops (Rocklatan) 1 drp EACH EYE QHS 10/01/23 prednisone 10 mg tablet 10 mg PO DAILY #20 tabs 10/01/23
--- NOTE | 2023-10-01 14:19 | CASEMGMT ---
Discharge Planning Discharge orders, signed med list, and transport time sent to [facility] via fax. Physicians will transport patient by cot at 4p. Nursing, SW, and patients brother/guardian updated. Muriel Sierra, Discharge Planning Asst.
[2023-10-01 14:46] VITALS: BP 123/69; PULSE 79; RESP 16; TEMP 36.6; O2SAT 96
== END 2023-10-01 13:54 | disposition intermediate care facility (04) ==
LOC: ED 20:57 → PCU 21:07
PROVIDERS: Admitting Provider Family Medicine; Emergency Provider Emergency Medicine; PCP Family Medicine; Visit Provider Internal Medicine
DX: T78.3XXA Angioneurotic edema, initial encounter (principal); F25.9 Schizoaffective disorder, unspecified; F31.9 Bipolar disorder, unspecified; J44.9 Chronic obstructive pulmonary disease, unspecified; E66.01 Morbid (severe) obesity due to excess calories; Z68.43 Body mass index [BMI] 50.0-59.9, adult; E11.9 Type 2 diabetes mellitus without complications; D53.9 Nutritional anemia, unspecified; E78.5 Hyperlipidemia, unspecified; I10 Essential (primary) hypertension; F41.9 Anxiety disorder, unspecified; F17.210 Nicotine dependence, cigarettes, uncomplicated; L50.9 Urticaria, unspecified; Z79.899 Other long term (current) drug therapy; Z79.82 Long term (current) use of aspirin; I73.9 Peripheral vascular disease, unspecified; F70 Mild intellectual disabilities
CPT/HCPCS: 36415; 80048; 80053; 82962; 85025; 94668; 96361; 96365; 96366; 96375; 96376; 99221; 99285; 99406; J7030; A4216; G0378; J3490

== ENCOUNTER 2024-06-30 21:40 | Emergency (ER) | payer MEDICAID, SELFPAY ==
[2024-06-30 21:42] VITALS: BP 162/97; PULSE 64; RESP 18; TEMP 36.8; O2SAT 97; BMI 41.8
--- NOTE | 2024-06-30 22:07 | EKG12_ITS ---
Test Reason : DYSRHYTHMIA Blood Pressure : */* mmHG Vent. Rate : 73 BPM Atrial Rate : 73 BPM P-R Int : 162 ms QRS Dur : 72 ms QT Int : 428 ms P-R-T Axes : 68 41 32 degrees QTcB Int : 471 ms Normal sinus rhythm Nonspecific T wave abnormality Abnormal ECG Confirmed by BALTA UNDERWOOD, KATHRYN ([id number]), publication editor YULIYA OTERO ([id number]) on 07/01/2024 8:56:28 AM Referred By: Confirmed By: KATHRYN GIFFORD MD
--- NOTE | 2024-06-30 22:07 | RAD_ITS ---
PROCEDURE: PELVIS 1 OR 2 VIEWS REASON FOR EXAM: Pain. Fall. TECHNIQUE: 1 view(s) of the pelvis. COMPARISON: None FINDINGS: No acute fracture or dislocation is present. There are mild degenerative changes. Visualized soft tissues are unremarkable. RAD/Pelvis 1 or 2 Views IMPRESSION: No acute osseous abnormality. [facility]
--- NOTE | 2024-06-30 22:07 | RAD_ITS ---
PROCEDURE: CHEST 1 VIEW (PORTABLE) REASON FOR EXAM: Pain. Fall. TECHNIQUE: Frontal view of the chest. COMPARISON: None. FINDINGS: Cardiomegaly is present. Pulmonary vasculature is within normal limits. No consolidation, pleural effusion, or pneumothorax is present. There is mild elevation of the right hemidiaphragm. RAD/Chest 1 View (Portable) IMPRESSION: No acute cardiopulmonary process. Reading Location: [facility]
--- NOTE | 2024-06-30 22:07 | CT_ITS ---
PROCEDURE: SPINE CERVICAL WITHOUT CONTRAS REASON FOR EXAM: Pain. Fall. TECHNIQUE: Cervical spine CT without contrast. COMPARISON: None. FINDINGS: Cervical vertebral bodies maintain a normal height. There are limitations due to artifact. Multilevel degenerative changes are present with disc space narrowing and endplate spurring. There is mild dextrocurvature of the cervical spine. No acute fracture or subluxation is present. Atlantodental interval demonstrates degenerative changes. Craniocervical junction is intact. Prevertebral soft tissues are unremarkable. Partial visualization of the lung parenchyma demonstrates ground-glass opacities in the right upper lobe however limited due to motion. CT/Spine Cervical without Contras IMPRESSION: 1. No acute fracture. 2. Multilevel degenerative changes. 3. Limitations due to motion. One or more dose reduction techniques were used (e.g., Automated exposure contr ol, adjustment of the mA and/or kV according to patient size, use of iterative reconstruction technique). Reading Location: [facility]
--- NOTE | 2024-06-30 22:07 | CT_ITS ---
PROCEDURE: BRAIN/HEAD WITHOUT CONTRAST REASON FOR EXAM: Fall. Pain. TECHNIQUE: Multiple, axial CT images of the brain are obtained without intravenous contrast. Coronal and sagittal 2D reformatted images were provided for better evaluation. COMPARISON: None. FINDINGS: There is prominence of the ventricles and sulci indicative of atrophy. No midline shift, mass effect, or extra-axial fluid collections are identified. No acute intracranial hemorrhage, mass, or acute territorial infarction is present per CT criteria. Smalls-white junction is preserved. Calvarium is intact. Visualized paranasal sinuses demonstrates mild mucosal thickening of the right maxillary sinus. CT/Brain/Head without Contrast IMPRESSION: 1. No acute intracranial process. 2. Atrophy. One or more dose reduction techniques were used (e.g., Automated exposure contr ol, adjustment of the mA and/or kV according to patient size, use of iterative reconstruction technique). Reading Location: [facility]
[2024-06-30 22:20] VITALS: BP 142/89; PULSE 71; RESP 16; TEMP 36.8; O2SAT 95
[2024-06-30 22:30] LABS: Absolute Lymphocyte Count 2.08 X10^3/uL (0.83-4.51); Absolute Neutrophil Count 10.2 X10^3/uL (2.0-7.7); Basophil# 0.06 X10^3/uL; Basophil% 0.4 % (0-1); Eosinophil# 0.66 X10^3/uL; Eosinophils% 4.6 % (0-5); Hematocrit 39.8 % (40-54); Hemoglobin 12.9 g/dL (13.0-16.5); Lymphocyte # 2.08 X10^3/ul (0.83-4.51); Lymphocyte % 14.4 % (19-41); Mean Corp Hgb Conc 32.4 g/dL (32-36); Mean Corpuscular Hgb 32.1 pg (27.0-32.0); Mean Platelet Vol. 8.6 fl (6.2-12.0); Monocyte# 1.27 X10^3/uL; Monocyte% 8.8 % (0-10); NRBC Flagged by Analyzer 0 % (0-5); Neutrophil # 10.21 X10^3/uL (2.7-7.7); Platelet Count 350 K/mm3 (150-450); RBC Distribution Width CV 13.2 % (11.6-14.6); RBC Distribution Width SD 48.6 fl (35.1-43.9); Red Blood Count 4.02 M/mm3 (4.6-6.2); White Blood Count 14.4 K/mm3 (4.4-11.0)
[2024-06-30 22:34] LABS: Bacteria 0 SEEN /hpf (None Seen); Red Blood Cells-Urine 0 SEEN /hpf (0-5)
[2024-06-30 22:40] LABS: Color, Urine Yellow (Yellow); Glucose, Dipstick Normal (Normal); Ketone-Dipstick Negative (Negative); Leukocyte Esterase-Dipstick 25 /ul (Negative); Nitrite-Dipstick Negative (Negative); Occult Blood-Urine Negative /ul (Negative); Protein-Dipstick 30 mg/dl (Negative); Urine Bilirubin Dipstick Negative (Negative); Urine Clarity Clear (Clear); Urine Urobilinogen 1 mg/dl (Normal)
[2024-06-30 22:45] LABS: Alcohol, Blood (Medical)-Serum < 3.0 mg/dL
[2024-06-30 22:46] LABS: Lactic Acid 1.2 mmol/L (0.4-1.9)
[2024-06-30 22:47] LABS: Amorphous Sediment 3+; Fine Granular Cast- Urine 0-5 SEEN /lpf (0-5); Mucous, Urine 2+ /hpf (<or=2+); Squamous Epithelial Cells - UA 0-5 SEEN /hpf (0-5); Transitional Epithelial - Ur 0-5 SEEN /hpf (0-5); White Blood Cells 0-5 SEEN /hpf (0-5)
[2024-06-30 22:49] LABS: Amphetamine Urine NEGATIVE (<1000 ng/mL); Barbiturate Urine VISTA NEGATIVE (< 200 ng/mL); Benzodiazepine Urine VISTA NEGATIVE (< 200 ng/mL); Cocaine Urine VISTA NEGATIVE (< 300 ng/mL); Ecstacy Urine VISTA POSITIVE (< 500 ng/mL); Methadone Urine VISTA NEGATIVE (< 300 ng/mL); PCP Urine VISTA NEGATIVE (< 25 ng/mL); THC Urine VISTA NEGATIVE (< 50 ng/mL); Vista UDS pH Range 7
[2024-06-30 22:57] LABS: Procalcitonin 0.06 ng/mL (0.00-0.09)
[2024-06-30 23:00] VITALS: BP 128/88; PULSE 75; RESP 18; TEMP 36.7; O2SAT 98
[2024-06-30 23:02] LABS: AST(SGOT) 12 U/L (15-37); Alanine Aminotransfer ALT/SGPT 25 U/L (16-61); Albumin, Serum 3.7 g/dL (3.2-5.0); Alkaline Phosphatase 55 U/L (45-117); Anion Gap 6 (5-15); BUN 17 mg/dL (7-18); BUN/Creat Ratio 11.7 RATIO (10-20); Bilirubin, Direct 0.12 mg/dL (0.00-0.30); Calcium,Total 9.2 mg/dL (8.5-10.1); Chloride 111 mmol/L (98-107); Creatinine, Serum 1.45 mg/dL (0.70-1.30); EST Glomerular Filtration Rate 52 mL/min (>60); Est Glom Filt Rate - Afr Amer 63 mL/min (>60); Estimated Creatinine Clearance 70.12 ml/min; Globulin 4.8 g/dL (2.2-4.2); Glucose 100 mg/dL (74-106); Potassium 3.8 mmol/L (3.5-5.1); Protein, Total 8.5 g/dL (6.4-8.2); Sodium Level 139 mmol/L (136-145); Thyroid Stim Hormone (TSH) 0.807 uIU/mL (0.358-3.740)
[2024-06-30 23:10] LABS: Blood Gas Specimen Type VEN; O2 Delivery Device Room Air; SITE Not entered; VBG BASE EXCESS -6 mmol/L (-1.0-3.5); VBG Bicarbonate 22 mmol/L (22-26); VBG PO2 32 mmHg (25-40); VBG SO2 50 % (50-70); VBG TCO2 24 mmol/L (23-33); VBG pH 7.23 (7.32-7.42)
[2024-07-01] VITALS: BP 146/83; PULSE 73; RESP 18; TEMP 36.7; O2SAT 95
--- NOTE | 2024-07-01 00:33 | EX.ED.DYSGE1 ---
HPI History of Present Illness Chief Complaint: Alt LOC Informant: patient and SNF Narrative Narrative: Patient is a 64-year-old male with history of schizophrenia mild intellectual disability hypertension hyperlipidemia and [id number] diabetes. [facility] reports that his mental status has been more depressed today than his baseline. They state that they checked him for COVID and this was negative. They report that with his increased sleepiness/depressed mental status they have concern for an infectious process and therefore he was sent to the ER for evaluation [facility] Medical History (Updated 07/02/24 @ 00:[address] Woodrow Bartlett, DO) Peripheral vascular disease Essential hypertension Conduct disorder, childhood onset type Mild intellectual disability Paraphilia, unspecified Major depressive disorder Bipolar 2 disorder Schizoaffective disorder Paranoid schizophrenia Anemia Impulse disorder Hyperlipemia Delusional disorder Hyperlipidemia Need for assistance with personal care Chronic tension headache Morbid obesity Unspecified atherosclerosis of [place] arteries of extremities, unspecified extremity COPD (chronic obstructive pulmonary disease) Cutaneous abscess of neck Primary open angle glaucoma Diabetes mellitus Home Medications ?Medication ?Instructions ?Recorded ?Last Taken ?Type acetaminophen 500 mg tablet 500 mg PO Q4H PRN fever or pain 09/30/23 Unknown History (Tylenol Extra Strength) aspirin 81 mg tablet,delayed 81 mg PO DAILY heart health 09/30/23 Unknown History release (Adult Aspirin Regimen) atorvastatin 40 mg tablet 40 mg PO QHS cholesterol 09/30/23 Unknown History benztropine 1 mg tablet 1 mg PO DAILY PREVENTION OF SIDE 09/30/23 Unknown History EFFECTS OF EPS bisacodyl 10 mg rectal suppository 10 mg PA DAILY PRN constipation 09/30/23 Unknown History (Gentle Laxative (bisacodyl)) brimonidine 0.2 %-timolol 0.5 % 1 drp EACH EYE BID ABSOLUTE 09/30/23 Unknown History eye drops (Combigan) GLAUCOMA cholecalciferol (vitamin D3) 1,250 1,250 mcg PO TU vitamin 09/30/23 Unknown History mcg (50,000 unit) capsule citalopram 20 mg tablet (Celexa) 20 mg PO DAILY MAJOR DEPRESSIVE 09/30/23 Unknown History DISEASE clonazepam 0.5 mg disintegrating 0.5 mg PO TID ANXIETY 09/30/23 Unknown History tablet fluphenazine HCl 2.5 mg tablet 2.5 mg PO Q6H PRN agitation 09/30/23 Unknown History fluphenazine HCl 2.5 mg/mL 2.5 mg IM Q6H AGITATION 09/30/23 Unknown History injection solution fluticasone propionate 50 2 spray intranasal DAILY 09/30/23 Unknown History mcg/actuation nasal spray,suspension (24 Hour Allergy Relief) folic acid 400 mcg tablet 400 mcg PO DAILY 09/30/23 Unknown History haloperidol 1 mg tablet 1 mg PO TID 09/30/23 Unknown History haloperidol 2 mg tablet 2 mg PO TID 09/30/23 Unknown History latanoprost 0.005 % eye drops 1 drp EACH EYE DAILY 09/30/23 Unknown History lithium carbonate 450 mg 450 mg PO DAILY 09/30/23 Unknown History tablet,extended release lorazepam 1 mg tablet (Ativan) 1 mg PO Q6H PRN agitation 09/30/23 Unknown History lorazepam 2 mg/mL injection 1 mg IM Q6H PRN agitation 09/30/23 Unknown History solution (Ativan) lorazepam 2 mg/mL injection syringe 1 mg IM Q6H PRN agitation 09/30/23 Unknown History magnesium hydroxide 400 mg/5 mL 30 ml PO DAILY PRN constipation 09/30/23 Unknown History oral suspension (Milk of Magnesia) medroxyprogesterone 5 mg tablet 5 mg PO DAILY 09/30/23 Unknown History (Provera) nicotine (polacrilex) 2 mg buccal 2 mg buccal Q6H PRN nicotine 09/30/23 Unknown History mini lozenge cravings nicotine 10 mg inhalation cartridge See Rx Instructions inhalation 09/30/23 Unknown History .COMPLEX PRN cravings sennosides 8.6 mg-docusate sodium 2 tab-cap PO QHS 09/30/23 Unknown History 50 mg capsule (Senna Plus) trazodone 100 mg tablet 100 mg PO DAILY 09/30/23 Unknown History verapamil 240 mg 24 hr 240 mg PO DAILY 09/30/23 Unknown History capsule,extended release aluminum-mag hydroxide-simethicone 30 ml PO Q4H PRN heartburn 10/01/23 Unknown History 200 mg-200 mg-20 mg/5 mL oral susp amlodipine 5 mg tablet 5 mg PO DAILY #30 tabs 10/01/23 Unknown Rx cimetidine 200 mg tablet (Tagamet 400 mg PO BID GI ulcers 10/01/23 Unknown History HB) fluphenazine HCl 10 mg tablet 10 mg PO DAILY mental health 10/01/23 Unknown History fluphenazine HCl 10 mg tablet 10 mg PO QHS schizophrenia 10/01/23 Unknown History fluphenazine HCl 5 mg tablet 5 mg PO QHS mental health 10/01/23 Unknown History lorazepam 2 mg/mL injection syringe 1 mg IM Q6H PRN agitation 10/01/23 Unknown History netarsudil 0.02 %-latanoprost 1 drp EACH EYE QHS 10/01/23 Unknown History 0.005 % eye drops (Rocklatan) prednisone 10 mg tablet 10 mg PO DAILY #20 tabs 10/01/23 Unknown Rx Allergy/AdvReac Type Severity Reaction Status Date / Time lisinopril Allergy Severe Angioedema Verified 10/01/23 01:56 Surgical History No history of previous surgery Social History (Updated 09/30/23 @ 21:[address] Daisy Gibson MD) household members: none housing: other details: Skilled facility. Smoking Status: Current every day smoker tobacco type: cigarettes alcohol intake: never substance use type: does not use ROS ROS ED Constitutional Constitutional ED: Denies chills or fever(s) Eyes Eyes: Denies change in vision ENT ENT ED: Denies sore throat Cardiovascular Cardiovascular: Denies chest pain Respiratory/Chest Respiratory/Chest: Denies cough or dyspnea Gastrointestinal Gastrointestinal: Reports nausea and vomiting; Denies abdominal pain or diarrhea Genitourinary Genitourinary ED: Denies dysuria Musculoskeletal Musculoskeletal: Denies myalgias Integumentary Denies rash Neurologic Neurologic: Denies headache(s) Hematologic/Lymphatic Hematologic/Lymphatic: Denies easy bleeding or easy bruising EXAM Physical Exam Const Vital Signs: 07/01/24 00:00 07/01/24 00:38 07/01/24 00:38 Temperature 98.0 F 98.0 F Temperature Source Temporal Pulse Rate 73 85 85 Respiratory Rate 18 18 18 Blood Pressure 146/83 H 146/83 H 146/83 H Blood Pressure Mean 104 104 104 Pulse Ox 95 95 95 Oxygen Delivery Method Room Air Room Air 07/01/24 01:00 07/01/24 02:00 07/01/24 03:26 Temperature Temperature Source Pulse Rate 72 71 72 Respiratory Rate 18 20 H 18 Blood Pressure 122/70 H 122/88 H 114/70 Blood Pressure Mean 87 99 84 Pulse Ox 96 95 96 Oxygen Delivery Method Room Air Room Air Room Air Positive well nourished, well developed and obese General Appearance ED: well developed; Negative for pallor Nutritional Appearance: obese HEENT HEENT Narrative: There is cobblestoning noted in the posterior pharynx consistent with sinus drainage without airway edema or compromise; no secondary findings to suggest infection Head is normocephalic and atraumatic Eyes PERRL and EOMs intact bilaterally General Eye ED: Negative for scleral icterus Neck supple Neck Narrative: No nuchal rigidity or meningeal signs Chest Wall palpation of chest normal Resp normal respiratory effort and clear to auscultation bilaterally Resp Narrative: Breath sounds are diminished throughout but overall clear to auscultation without signs of respiratory distress Cardio regular rate and regular rhythm GI non-tender, non-distended and no masses GI Narrative: Soft nontender and nondistended with hyperactive bowel sounds no voluntary guarding or rigidity or pulsatile mass Auscultation: hyperactive bowel sounds Palpation: soft Extremity normal to inspection Neuro CN's II-XII intact bilaterally Neuro Narrative: GCS of 14 Patient will awake to voice and answer questions appropriately but then quickly fall back asleep. There is no focal neurologic deficit noted Sensorium / Orientation: orientation impaired Psych mental status grossly normal Skin no rashes or lesions noted General Skin Exam: Negative for jaundice or pallor MDM MDM MDM Narrative Medical decision making narrative: Patient arrived to the ER hypertensive but otherwise with stable vitals. He was awake to voice and was protecting his airway and can move all extremities and there is no signs of focal neurologic deficit. With prison reporting depressed mental status there is concern for an underlying neurologic event such as an acute spontaneous subarachnoid or subdural hemorrhage. Patient may have acute kidney injury hyperammonemia UTI or viral infection such as COVID influenza RSV. Secondary to this a chest x-ray and head CT were obtained as well as basic blood work and urine sample. Head CT revealed no acute intracranial process and chest x-ray revealed no acute pneumonia. Labs revealed no clinically significant findings other than a positive COVID test. This could correlate with mild encephalopathy from the viral infection. However his vitals are stable he is not in respiratory distress he is not requiring supplemental oxygen he is protecting his airway and therefore there is no need for admission as he is not septic or hypoxic or severely encephalopathic and can go back to the prison for continued care. History & Record Review Discussion w/independent historian: Patient Lab Data Attestation: I reviewed the patient's lab results. Labs: Laboratory Results - last 24 hr 07/01/24 07/01/24 01:30 04:53 [place] 0.50 L POC Glucose 100 ABG Data ABG results: ABG 06/30/24 23:07 Specimen Type GONZALEZ Sample Site Not entered VBG pH 7.23 L VBG pO2 32 VBG HCO3 22 VBG Total CO2 24 VBG O2 Sat (Calc) 50 VBG Base Excess -6 L POC Mix VBG pCO2 Pt Tmp 52.0 H O2 Delivery Device Room Air Radiography Diagnostic Testing: Clinical Impression(s) from Imaging Studies Brain CT 06/30/24 22:07 IMPRESSION: 1. No acute intracranial process. 2. Atrophy. One or more dose reduction techniques were used (e.g., Automated exposure control, adjustment of the mA and/or kV according to patient size, use of iterative reconstruction technique). Reading Location: [facility] Cervical Spine CT 06/30/24 22:07 IMPRESSION: 1. No acute fracture. 2. Multilevel degenerative changes. 3. Limitations due to motion. One or more dose reduction techniques were used (e.g., Automated exposure control, adjustment of the mA and/or kV according to patient size, use of iterative reconstruction technique). Reading Location: [facility] Chest X-Ray 06/30/24 22:07 IMPRESSION: No acute cardiopulmonary process. Reading Location: [facility] Pelvis X-Ray 06/30/24 22:07 IMPRESSION: No acute osseous abnormality. Reading Location: [facility] Chest x-ray as interpreted by the emergency medicine physician reveals no acute infiltrate or pneumothorax 1 view pelvis x-ray as interpreted by the emergency medicine physician reveals no acute fracture or dislocation Discharge Plan Triage Chief Complaint: Alt LOC ED Provider: Woodrow Bartlett Dx/Rx/DC Orders Clinical Impression: COVID-19, Hypertension, Hyperlipidemia, Non-insulin dependent diabetes mellitus, Schizophrenia Instructions: Coronavirus Disease 2019 (COVID-19): Caring for Yourself or Others Prescriptions: No Action aspirin [Adult Aspirin Regimen] 81 mg tablet,delayed release (DR/EC) 81 mg PO DAILY lorazepam [Ativan] 2 mg/mL solution 1 mg IM Q6H PRN (Reason: agitation) lorazepam [Ativan] 1 mg tablet 1 mg PO Q6H PRN (Reason: agitation) Patient Comments: Give with PO Fluphenazine benztropine 1 mg tablet 1 mg PO DAILY citalopram [Celexa] 20 mg tablet 20 mg PO DAILY clonazepam 0.5 mg tablet,disintegrating 0.5 mg PO TID brimonidine-timolol [Combigan] 0.2-0.5 % drops 1 drp EACH EYE BID fluphenazine HCl 2.5 mg/mL solution 2.5 mg IM Q6H Rx Instructions: to be given with IM ativan fluphenazine HCl 2.5 mg tablet 2.5 mg PO Q6H PRN (Reason: agitation) Rx Instructions: TO BE GIVEN WITH ATIVAN PO folic acid 400 mcg tablet 400 mcg PO DAILY haloperidol 2 mg tablet 2 mg PO TID haloperidol 1 mg tablet 1 mg PO TID latanoprost 0.005 % drops 1 drp EACH EYE DAILY atorvastatin 40 mg tablet 40 mg PO QHS lithium carbonate 450 mg tablet extended release 450 mg PO DAILY magnesium hydroxide [Milk of Magnesia] 400 mg/5 mL suspension 30 ml PO DAILY PRN (Reason: constipation) nicotine (polacrilex) 2 mg mini lozenge 2 mg buccal Q6H PRN (Reason: nicotine cravings) Rx Instructions: Give 1 lozenge Q2H PRN, do not exceed 8 lozenges per day nicotine 10 mg cartridge See Rx Instructions inhalation .COMPLEX PRN (Reason: cravings) Rx Instructions: 1 insert inhale orally every 2 hours as needed for smoking alternative. Do not exceed 8 cartridges per day. inhaled PRN; medroxyprogesterone [Provera] 5 mg tablet 5 mg PO DAILY Senna Plus 8.6-50 mg capsule 2 tab-cap PO QHS trazodone 100 mg tablet 100 mg PO DAILY acetaminophen [Tylenol Extra Strength] 500 mg tablet 500 mg PO Q4H PRN (Reason: fever or pain) verapamil 240 mg capsule,ext rel. pellets 24 hr 240 mg PO DAILY cholecalciferol (vitamin D3) 1,250 mcg (50,000 unit) capsule 1,250 mcg PO TU bisacodyl [Gentle Laxative (bisacodyl)] 10 mg suppository 10 mg PA DAILY PRN (Reason: constipation) fluticasone propionate [24 Hour Allergy Relief] 50 mcg/actuation spray,suspension 2 spray intranasal DAILY Rx Instructions: administer into each nostril lorazepam 2 mg/mL syringe 1 mg IM Q6H PRN (Reason: agitation) Rx Instructions: To be given with Fluphenazine cimetidine [Tagamet HB] 200 mg tablet 400 mg PO BID Rx Instructions: administer with meals Rocklatan 0.02-0.005 % drops 1 drp EACH EYE QHS lorazepam 2 mg/mL syringe 1 mg IM Q6H PRN (Reason: agitation) Rx Instructions: to be given with Fluphenazine IM fluphenazine HCl 10 mg tablet 10 mg PO QHS fluphenazine HCl 5 mg tablet 5 mg PO QHS Patient Comments: Patient takes a 10mg tablet and 5 mg table to equal 15mg total fluphenazine HCl 10 mg tablet 10 mg PO DAILY alum-mag hydroxide-simeth 200-200-20 mg/5 mL suspension 30 ml PO Q4H PRN (Reason: heartburn) amlodipine 5 mg tablet 5 mg PO DAILY Qty: 30 0RF prednisone 10 mg tablet 10 mg PO DAILY Qty: 20 0RF Rx Instructions: 4 tablets x 2 days, 3 tablets x 2 days, 2 tablets x 2 days, 1 tablet x 2 days and stop Primary Care Provider: Rd Garcia Referrals: Rd Garcia MD [Primary Care Provider] - Activity Restrictions/Additional Instructions: The patient tested positive for COVID-19 which would be the cause of his fatigue and depressed mental status. CTs of the head and cervical spine revealed no acute findings chest x-ray showed no signs of pneumonia and blood work revealed no clinically significant findings either. As he is not hypoxic or hypotensive there is no need for admission and he is safe to return to the prison Print Language: Swazi Disposition Disposition: Home, Self Care Discharge Date/Time: 07/01/24 05:07
[2024-07-01 00:38] VITALS: BP 146/83; PULSE 85; RESP 18; TEMP 36.7; O2SAT 95
[2024-07-01 01:00] VITALS: BP 122/70; PULSE 72; RESP 18; O2SAT 96
[2024-07-01 02:00] VITALS: BP 122/88; PULSE 71; RESP 20; O2SAT 95
[2024-07-01 03:26] VITALS: BP 114/70; PULSE 72; RESP 18; O2SAT 96
[2024-07-01 05:10] LABS: Bedside Glucose 100 mg/dL (74-106)
== END 2024-07-01 05:07 | disposition home or self-care (01) ==
PROVIDERS: Emergency Provider Emergency Medicine; PCP Family Medicine; Visit Provider Emergency Medicine
DX: U07.1 COVID-19 (principal); F20.0 Paranoid schizophrenia; F31.81 Bipolar II disorder; J44.9 Chronic obstructive pulmonary disease, unspecified; E11.51 Type 2 diabetes mellitus with diabetic peripheral angiopathy without gangrene; F70 Mild intellectual disabilities; I10 Essential (primary) hypertension; E66.9 Obesity, unspecified; E78.5 Hyperlipidemia, unspecified; F17.210 Nicotine dependence, cigarettes, uncomplicated; Z79.899 Other long term (current) drug therapy; Z79.82 Long term (current) use of aspirin
CPT/HCPCS: 70450; 71045; 72125; 72170; 80048; 80076; 80178; 80307; 81001; 82077; 82140; 82803; 82962; 83605; 84145; 84443; 85025; 87631; 93005; 99284; A4216

== ENCOUNTER → 2024-07-17 | Outpatient (CLI) | payer MEDICAID, SELFPAY ==
--- NOTE | 2024-07-17 08:03 | CT_ITS ---
EXAM: CT BRAIN WITHOUT AND WITH CONTRAST CLINICAL HISTORY: CHRONIC HEADACHES. COMPARISON: 06/30/2024 CT BRAIN. MRI BRAIN DATED 08/27/2018. TECHNIQUE: Contiguous axial scans of 3.75 mm slice thicknesses with sagittal and coronal reconstruction images. One or more dose reduction techniques were utilized (e.g., automated exposure control, adjustment of mA and/or kv according to patient size, use of iterative reconstruction technique). Contrast: Isovue 370. Amount injected: 49 mL. FINDINGS: No intraparenchymal hemorrhage. No abnormal areas of encephalomalacia. Mild senescent change. No mass effect or midline shift. Smalls-white matter differentiation is normal. Ventricles and cisterns are appropriate size for patient's age. No extra-axial fluid collections. Cerebellum and posterior fossa unremarkable. Mild mucoperiosteal thickening involving the right maxillary and sphenoid sinuses. Mastoid air cells are normal. Calvarium unremarkable. Soft tissues unremarkable. CT/Brain/Head W/WO Contrast IMPRESSION: No acute intracranial findings. Mild right maxillary and sphenoid sinus inflammation. Reading Location: [facility]
== END | disposition home or self-care (01) ==
LOC: CT 07:57
PROVIDERS: PCP Family Medicine; Referring Provider Family Medicine; Visit Provider Family Medicine
DX: R51.9 Headache, unspecified (principal)
CPT/HCPCS: 70470; Q9967

== ENCOUNTER 2024-08-17 19:20 | Emergency (ER) | payer MEDICAID, SELFPAY ==
[2024-08-17] VITALS (20 sets, daily range): BP systolic 98–160; BP diastolic 65–144; PULSE 50–74; RESP 13–21; TEMP 34.3–36; O2SAT 95–100; BMI 42.3
--- NOTE | 2024-08-17 19:25 | EKG12_ITS ---
Test Reason : DYSRHYTHMIA Blood Pressure : */* mmHG Vent. Rate : 52 BPM Atrial Rate : * BPM P-R Int : * ms QRS Dur : 78 ms QT Int : 658 ms P-R-T Axes : * 26 53 degrees QTcB Int : 611 ms Critical Test Result: Long QTc Sinus rhythm Nonspecific T wave abnormality Abnormal ECG Confirmed by BALTA UNDERWOOD, KATHRYN ([id number]), publications editor YULIYA OTERO ([id number]) on 08/18/2024 8:16:21 AM Referred By: CLAUDIA Confirmed By: KATHRYN GIFFORD MD
--- NOTE | 2024-08-17 19:26 | EDS_ITS ---
HPI <Dr. Scott Ayala MD - Last Filed: 08/18/24 13:25> History of Present Illness Chief Complaint: Alt LOC Detail of Chief Complaint: Bradycardia, low blood pressure and altered level of consciousness per nurs Informant: patient, EMS and SNF Onset/Context/Timing Onset: - (Onset varies depending on symptom, detailed HPI narrative) Context: - (Limited information called in by nursing facility. Patient not reliable) Current Severity: Unable to determine Maximum Severity: Unable to determine Worsened by: Nothing Relieved by: Nothing Associated Symptoms Associated Symptoms: None Narrative Narrative: Patient is a 64-year-old male. He has a signed DNR [facility] arrest document. He was sent to the emergency room because of bradycardia, hypotension, altered level of consciousness. Nursing team called and lethargic. Patient is not lethargic. He does not answer questions asked. Uncertain whether this is due to his schizoaffective disorder versus metabolic versus infectious cause. He is not appropriate and already has made suggestive comments to his nurse. She was informed that he has a history of paraphilia. Apparently, Diamox has been held since Sunday. He is on Diamox because of history of glaucoma. No other history is available. [facility] <Dr. Scott Ayala MD - Last Filed: 08/18/24 13:25> [facility] Medical History Peripheral vascular disease Essential hypertension Conduct disorder, childhood onset type Mild intellectual disability Paraphilia, unspecified Major depressive disorder Bipolar 2 disorder Schizoaffective disorder Paranoid schizophrenia Anemia Impulse disorder Hyperlipemia Delusional disorder Hyperlipidemia Need for assistance with personal care Chronic tension headache Morbid obesity Unspecified atherosclerosis of [place] arteries of extremities, unspecified extremity COPD (chronic obstructive pulmonary disease) Cutaneous abscess of neck Primary open angle glaucoma Diabetes mellitus Home Medications ?Medication ?Instructions ?Recorded ?Last Taken ?Type acetaminophen 500 mg tablet 500 mg PO Q4H PRN fever or pain 09/30/23 Unknown History (Tylenol Extra Strength) aspirin 81 mg tablet,delayed 81 mg PO DAILY heart heal th 09/30/23 Unknown His tory release (Adult Aspirin Regimen) benztropine 1 mg tablet 1 mg PO DAILY PREVENTION OF SIDE 09/30/23 Unknown History EFFECTS OF EPS bisacodyl 10 mg rectal suppository 10 mg [place] DAILY PRN constipation 09/30/23 Unknown History (Gentle Laxative (bisacodyl)) brimonidine 0.2 %-timolol 0.5 % 1 drp EACH EYE BID ABS OLUTE 09/30/23 Unknown History eye drops (Combigan) GLAUCOMA cholecalciferol (vitamin D3) 1,250 1,250 mcg PO TU vit [place] 09/30/23 Unknown History mcg (50,000 unit) capsule citalopram 20 mg tablet (Celexa) 20 mg PO DAILY MAJOR DEPRESSIVE 09/30/23 Unknown History DISEASE clonazepam 0.5 mg disintegrating 0.5 mg PO TID ANXIETY 09/30/23 Unknown History tablet fluphenazine HCl 2.5 mg tablet 2.5 mg PO Q6H PRN agita tion 09/30/23 Unknown History fluphenazine HCl 2.5 mg/mL 2.5 mg IM Q6H AGITATION 10/18 Unknown History injection solution fluticasone propionate 50 2 spray intranasal DAILY 10/18 Unknown History mcg/actuation nasal spray,suspension (24 Hour Allergy Relief) folic acid 400 mcg tablet 400 mcg PO DAILY 09/30/23 Un known History
--- NOTE | 2024-08-17 19:26 | EX.ED.DYSGE1 ---
HPI <Dr. Scott Ayala MD - Last Filed: 08/18/24 13:25> History of Present Illness Chief Complaint: Alt LOC Detail of Chief Complaint: Bradycardia, low blood pressure and altered level of consciousness per nurs Informant: patient, EMS and SNF Onset/Context/Timing Onset: - (Onset varies depending on symptom, detailed HPI narrative) Context: - (Limited information called in by nursing facility. Patient not reliable) Current Severity: Unable to determine Maximum Severity: Unable to determine Worsened by: Nothing Relieved by: Nothing Associated Symptoms Associated Symptoms: None Narrative Narrative: Patient is a 64-year-old male. He has a signed DNR Comfort Care arrest document. He was sent to the emergency room because of bradycardia, hypotension, altered level of consciousness. Nursing team called and lethargic. Patient is not lethargic. He does not answer questions asked. Uncertain whether this is due to his schizoaffective disorder versus metabolic versus infectious cause. He is not appropriate and already has made suggestive comments to his nurse. She was informed that he has a history of paraphilia. Apparently, Diamox has been held since Sunday. He is on Diamox because of history of glaucoma. No other history is available. [facility] <Dr. Scott Ayala MD - Last Filed: 08/18/24 13:25> [facility] Medical History Peripheral vascular disease Essential hypertension Conduct disorder, childhood onset type Mild intellectual disability Paraphilia, unspecified Major depressive disorder Bipolar 2 disorder Schizoaffective disorder Paranoid schizophrenia Anemia Impulse disorder Hyperlipemia Delusional disorder Hyperlipidemia Need for assistance with personal care Chronic tension headache Morbid obesity Unspecified atherosclerosis of [place] arteries of extremities, unspecified extremity COPD (chronic obstructive pulmonary disease) Cutaneous abscess of neck Primary open angle glaucoma Diabetes mellitus Home Medications ?Medication ?Instructions ?Recorded ?Last Taken ?Type acetaminophen 500 mg tablet 500 mg PO Q4H PRN fever or pain 09/30/23 Unknown History (Tylenol Extra Strength) aspirin 81 mg tablet,delayed 81 mg PO DAILY heart health 09/30/23 Unknown History release (Adult Aspirin Regimen) benztropine 1 mg tablet 1 mg PO DAILY PREVENTION OF SIDE 09/30/23 Unknown History EFFECTS OF EPS bisacodyl 10 mg rectal suppository 10 mg IN DAILY PRN constipation 09/30/23 Unknown History (Gentle Laxative (bisacodyl)) brimonidine 0.2 %-timolol 0.5 % 1 drp EACH EYE BID ABSOLUTE 09/30/23 Unknown History eye drops (Combigan) GLAUCOMA cholecalciferol (vitamin D3) 1,250 1,250 mcg PO TU vitamin 09/30/23 Unknown History mcg (50,000 unit) capsule citalopram 20 mg tablet (Celexa) 20 mg PO DAILY MAJOR DEPRESSIVE 09/30/23 Unknown History DISEASE clonazepam 0.5 mg disintegrating 0.5 mg PO TID ANXIETY 09/30/23 Unknown History tablet fluphenazine HCl 2.5 mg tablet 2.5 mg PO Q6H PRN agitation 09/30/23 Unknown History fluphenazine HCl 2.5 mg/mL 2.5 mg IM Q6H AGITATION 09/30/23 Unknown History injection solution fluticasone propionate 50 2 spray intranasal DAILY 09/30/23 Unknown History mcg/actuation nasal spray,suspension (24 Hour Allergy Relief) folic acid 400 mcg tablet 400 mcg PO DAILY 09/30/23 Unknown History haloperidol 1 mg tablet 1 mg PO TID 09/30/23 Unknown History haloperidol 2 mg tablet 2 mg PO TID 09/30/23 Unknown History latanoprost 0.005 % eye drops 1 drp EACH EYE DAILY 09/30/23 Unknown History lithium carbonate 450 mg 450 mg PO DAILY 09/30/23 Unknown History tablet,extended release lorazepam 1 mg tablet (Ativan) 1 mg PO Q6H PRN agitation 09/30/23 Unknown History magnesium hydroxide 400 mg/5 mL 30 ml PO DAILY PRN constipation 09/30/23 Unknown History oral suspension (Milk of Magnesia) medroxyprogesterone 5 mg tablet 5 mg PO DAILY 09/30/23 Unknown History (Provera) nicotine (polacrilex) 2 mg buccal 2 mg buccal Q6H PRN nicotine 09/30/23 Unknown History mini lozenge cravings nicotine 10 mg inhalation cartridge See Rx Instructions inhalation 09/30/23 Unknown History .COMPLEX PRN cravings sennosides 8.6 mg-docusate sodium 2 tab-cap PO QHS 09/30/23 Unknown History 50 mg capsule (Senna Plus) trazodone 100 mg tablet 100 mg PO DAILY 09/30/23 Unknown History verapamil 240 mg 24 hr 240 mg PO DAILY 09/30/23 Unknown History capsule,extended release aluminum-mag hydroxide-simethicone 30 ml PO Q4H PRN heartburn 10/01/23 Unknown History 200 mg-200 mg-20 mg/5 mL oral susp amlodipine 5 mg tablet 5 mg PO DAILY #30 tabs 10/01/23 Unknown Rx cimetidine 200 mg tablet (Tagamet 400 mg PO BID GI ulcers 10/01/23 Unknown History HB) fluphenazine HCl 10 mg tablet 10 mg PO DAILY mental health 10/01/23 Unknown History fluphenazine HCl 10 mg tablet 10 mg PO QHS schizophrenia 10/01/23 Unknown History fluphenazine HCl 5 mg tablet 5 mg PO QHS mental health 10/01/23 Unknown History lorazepam 2 mg/mL injection syringe 1 mg IM Q6H PRN agitation 10/01/23 Unknown History netarsudil 0.02 %-latanoprost 1 drp EACH EYE QHS 10/01/23 Unknown History 0.005 % eye drops (Rocklatan) atorvastatin 40 mg tablet (Lipitor) 40 mg PO DAILY 08/17/24 Unknown History Allergy/AdvReac Type Severity Reaction Status Date / Time lisinopril Allergy Severe Angioedema Verified 08/17/24 19:28 Surgical History No history of previous surgery Social History household members: none housing: other details: Skilled facility. Smoking Status: Current every day smoker tobacco type: cigarettes alcohol intake: never substance use type: does not use ROS <Dr. Scott Ayala MD - Last Filed: 08/18/24 13:25> ROS ED Review of Systems ROS Unobtainable: due to mental condition, due to mental status and other Details: The attending that is with him states everything is on the document. There is nothing documented other than what was called in and nurse took brief notes. EXAM <Dr. Scott Ayala MD - Last Filed: 08/18/24 13:25> Physical Exam Const Vital Signs: 08/17/24 19:22 08/17/24 19:26 08/17/24 19:31 Temperature 93.7 F L 93.7 F L Temperature Source Oral Oral Pulse Rate 52 L 51 L Respiratory Rate 19 H 21 H Blood Pressure 98/73 98/73 Blood Pressure Mean 81 81 Pulse Ox 99 100 Oxygen Delivery Method Room Air Room Air Room Air 08/17/24 19:42 08/17/24 20:00 08/17/24 20:06 Temperature 94.3 F L Temperature Source Rectal Pulse Rate 52 L 57 L Respiratory Rate 17 16 Blood Pressure 150/74 H Blood Pressure Mean 98 Pulse Ox 100 Oxygen Delivery Method 08/17/24 20:15 08/17/24 20:26 08/17/24 20:30 Temperature 96.3 F L Temperature Source Rectal Pulse Rate 57 L 55 L 50 L Respiratory Rate 15 15 16 Blood Pressure 120/87 H 146/72 H 136/65 H Blood Pressure Mean 96 96 86 Pulse Ox 100 Oxygen Delivery Method Room Air 08/17/24 20:45 08/17/24 21:00 08/17/24 21:00 Temperature 96.3 F L Temperature Source Rectal Pulse Rate 55 L 57 L Respiratory Rate 21 H 16 Blood Pressure 146/72 H 146/72 H Blood Pressure Mean 92 96 Pulse Ox 100 100 Oxygen Delivery Method Room Air 08/17/24 21:06 08/17/24 21:15 08/17/24 21:30 Temperature Temperature Source Pulse Rate 60 53 L Respiratory Rate 15 17 Blood Pressure 106/72 130/108 H 114/79 Blood Pressure Mean 85 117 90 Pulse Ox 99 Oxygen Delivery Method 08/17/24 21:45 08/17/24 22:00 08/17/24 22:15 Temperature Temperature Source Pulse Rate 54 L 58 L 57 L Respiratory Rate 15 19 H 17 Blood Pressure 115/102 H 129/109 H 111/76 Blood Pressure Mean 109 117 88 Pulse Ox 100 100 Oxygen Delivery Method 08/17/24 22:30 08/17/24 22:45 08/17/24 23:00 Temperature Temperature Source Pulse Rate 56 L 60 74 Respiratory Rate 13 18 17 Blood Pressure 160/144 H 131/111 H Blood Pressure Mean 151 118 Pulse Ox Oxygen Delivery Method 08/17/24 23:52 Temperature 96.8 F L Temperature Source Pulse Rate 74 Respiratory Rate 17 Blood Pressure 131/111 H Blood Pressure Mean 117 Pulse Ox 95 Oxygen Delivery Method Positive well nourished and well developed Constitutional Narrative: BMI is 42.3. He appears in no distress. General Appearance ED: well developed HEENT Reports dry mucous membranes HEENT Narrative: Head is atraumatic normocephalic. Ears normal. Nares patent. Mouth ED: Yes dry mucous membranes Mouth: dry mucous membranes Eyes EOMs intact bilaterally; Negative for PERRL Eyes Narrative: Patient has ocular changes right eye. Suspect this is due to his glaucoma. Reportedly this is not new. Neck no lymphadenopathy, supple and no JVD Chest Wall inspection of chest normal and palpation of chest normal Resp normal respiratory effort Auscultation: rales bilateral base Cardio regular rhythm, S1 normal heart sound, S2 normal heart sound and no murmurs Rate: bradycardia GI normal to inspection, nondistended, normoactive bowel sounds, non-tender, non-distended, hepatosplenomegaly and no masses Extremity General Extremety ED: Yes edema General Extremity: edema Neuro CN's II-XII intact bilaterally and no sensory deficits noted Neuro Narrative: Unable to determine if patient oriented. Motor Exam: strength 5/5 throughout <Dr. Woodrow Bartlett, DO - Last Filed: 08/17/24 23:00> Physical Exam Const Vital Signs: 08/17/24 19:22 08/17/24 19:26 08/17/24 19:31 Temperature 93.7 F L 93.7 F L Temperature Source Oral Oral Pulse Rate 52 L 51 L Respiratory Rate 19 H 21 H Blood Pressure 98/73 98/73 Blood Pressure Mean 81 81 Pulse Ox 99 100 Oxygen Delivery Method Room Air Room Air Room Air 08/17/24 19:42 08/17/24 20:00 08/17/24 20:06 Temperature 94.3 F L Temperature Source Rectal Pulse Rate 52 L 57 L Respiratory Rate 17 16 Blood Pressure 150/74 H Blood Pressure Mean 98 Pulse Ox 100 Oxygen Delivery Method 08/17/24 20:15 08/17/24 20:26 08/17/24 20:30 Temperature 96.3 F L Temperature Source Rectal Pulse Rate 57 L 55 L 50 L Respiratory Rate 15 15 16 Blood Pressure 120/87 H 146/72 H 136/65 H Blood Pressure Mean 96 96 86 Pulse Ox 100 Oxygen Delivery Method Room Air 08/17/24 20:45 08/17/24 21:00 08/17/24 21:00 Temperature 96.3 F L Temperature Source Rectal Pulse Rate 55 L 57 L Respiratory Rate 21 H 16 Blood Pressure 146/72 H 146/72 H Blood Pressure Mean 92 96 Pulse Ox 100 100 Oxygen Delivery Method Room Air 08/17/24 21:06 08/17/24 21:15 08/17/24 21:30 Temperature Temperature Source Pulse Rate 60 53 L Respiratory Rate 15 17 Blood Pressure 106/72 130/108 H 114/79 Blood Pressure Mean 85 117 90 Pulse Ox 99 Oxygen Delivery Method 08/17/24 21:45 08/17/24 22:00 08/17/24 22:15 Temperature Temperature Source Pulse Rate 54 L 58 L 57 L Respiratory Rate 15 19 H 17 Blood Pressure 115/102 H 129/109 H 111/76 Blood Pressure Mean 109 117 88 Pulse Ox 100 100 Oxygen Delivery Method 08/17/24 22:30 08/17/24 22:45 08/17/24 23:00 Temperature Temperature Source Pulse Rate 56 L 60 74 Respiratory Rate 13 18 17 Blood Pressure 160/144 H 131/111 H Blood Pressure Mean 151 118 Pulse Ox Oxygen Delivery Method 08/17/24 23:52 Temperature 96.8 F L Temperature Source Pulse Rate 74 Respiratory Rate 17 Blood Pressure 131/111 H Blood Pressure Mean 117 Pulse Ox 95 Oxygen Delivery Method MDM <Dr. Scott Ayala MD - Last Filed: 08/18/24 13:25> [facility] MDM Narrative Medical decision making narrative: Monitor reveals a narrow complex slow rhythm. There is significant artifact unable determine if this is sinus versus junctional. Twelve-lead was ordered since he is DNR Comfort Care arrest and not comfort care as initially called in by squ[facility]. Since he is hypothermic and bradycardic need to consider thyroid disease which is not listed on his med sheet. Also need to rule out infectious cause. Other reasons for altered mental status or metabolic causes. EKG was obtained to assess for cardiac ischemia. Lab Data Attestation: I reviewed the patient's lab results. Lab results narrative: CBC reveals macrocytic anemia. Competence of metabolic panel is normal. Lactate is normal. TSH is normal. UA is normal. First troponin is normal. If second troponin is normal he will be discharged back to the nursing facility. I was informed at approximately 2053 that patient's temperature is 96.3. Labs: Laboratory Results - last 24 hr 08/17/24 08/17/24 08/17/24 19:31 19:36 19:56 WBC 5.9 RBC 3.95 L Hgb 12.8 L Hct 39.4 L MCV 99.7 H MCH 32.4 H MCHC 32.5 RDW Std Deviation 54.4 H RDW Coeff of [place] 14.7 H Plt Count 276 MPV 9.2 Immature Gran % (Auto) 0.300 Neut % (Auto) 49.5 Lymph % (Auto) 34.9 [place] % (Auto) 9.9 Eos % (Auto) 4.9 Baso % (Auto) 0.5 Absolute Neuts (auto) 2.9 Absolute Lymphs (auto) 2.05 Nucleated RBC % 0 Sodium 141 Potassium 4.0 Chloride 110 H Carbon Dioxide 22.3 Anion Gap 9 BUN 17 Creatinine 1.01 Estim Creat Clear Calc 101.28 Est GFR (MDRD) Non-Af 84 BUN/Creatinine Ratio 16.8 Glucose 76 Lactic Acid < 1.0 Calcium 9.5 Total Bilirubin 0.15 AST 26 ALT 25 Alkaline Phosphatase 67 Troponin T High Sens 9 Troponin T Hi Sens 2 Hr Total Protein 7.3 Albumin 4.2 Globulin 3.2 Albumin/Globulin Ratio 1.3 TSH 2.360 Urine Color Yellow Urine Clarity Sl. Cloudy Urine pH 6.0 Ur Specific [place] 1.015 Urine Protein 15 H Urine Glucose (UA) Normal Urine Ketones Negative Urine Occult Blood Negative Urine Nitrite Negative Urine Bilirubin Negative Urine Urobilinogen Normal Ur Leukocyte Esterase Negative Urine RBC 0 SEEN Urine WBC 0 SEEN Ur Squamous Epith Cells 0-5 SEEN Urine Bacteria 0 SEEN Urine Mucus 0 SEEN POC Glucose 103 08/17/24 22:11 WBC RBC Hgb Hct MCV MCH MCHC RDW Std Deviation RDW Coeff of [place] Plt Count MPV Immature Gran % (Auto) Neut % (Auto) Lymph % (Auto) [place] % (Auto) Eos % (Auto) Baso % (Auto) Absolute Neuts (auto) Absolute Lymphs (auto) Nucleated RBC % Sodium Potassium Chloride Carbon Dioxide Anion Gap BUN Creatinine Estim Creat Clear Calc Est GFR (MDRD) Non-Af BUN/Creatinine Ratio Glucose Lactic Acid Calcium Total Bilirubin AST ALT Alkaline Phosphatase Troponin T High Sens Troponin T Hi Sens 2 Hr 11 Total Protein Albumin Globulin Albumin/Globulin Ratio TSH Urine Color Urine Clarity Urine pH Ur Specific [place] Urine Protein Urine Glucose (UA) Urine Ketones Urine Occult Blood Urine Nitrite Urine Bilirubin Urine Urobilinogen Ur Leukocyte Esterase Urine RBC Urine WBC Ur Squamous Epith Cells Urine Bacteria Urine Mucus POC Glucose Radiography Chest X-Ray - ED: 1 View, Read by ED Physician (Independent reviewed interpreted by me at 2039. Portable film. He is slightly rotated. Inspiratory volumes is limited.), Normal, Heart, Lungs, Mediastinum, Bony Structures and No Acute Disease Diagnostic Testing: Clinical Impression(s) from Imaging Studies Chest X-Ray 08/17/24 19:40 IMPRESSION: Mild bibasilar atelectasis. No localizing infiltrate. Reading Location: [facility] EKG Initial EKG: Attestation: I personally reviewed and interpreted this EKG as follows: Interpretation: Sinus Bradycardia (Rate is 52. IN interval is normal. QRS duration 78 ms. QT is markedly prolonged at 658 ms. There is artifact that the computer is reading is nonspecific. Computer also read this was a junctional rhythm which is incorrect.) <Dr. Woodrow Bartlett, DO - Last Filed: 08/17/24 23:00> [facility] Lab Data Labs: Laboratory Results - last 24 hr 08/17/24 08/17/24 08/17/24 19:31 19:36 19:56 WBC 5.9 RBC 3.95 L Hgb 12.8 L Hct 39.4 L MCV 99.7 H MCH 32.4 H MCHC 32.5 RDW Std Deviation 54.4 H RDW Coeff of [place] 14.7 H Plt Count 276 MPV 9.2 Immature Gran % (Auto) 0.300 Neut % (Auto) 49.5 Lymph % (Auto) 34.9 [place] % (Auto) 9.9 Eos % (Auto) 4.9 Baso % (Auto) 0.5 Absolute Neuts (auto) 2.9 Absolute Lymphs (auto) 2.05 Nucleated RBC % 0 Sodium 141 Potassium 4.0 Chloride 110 H Carbon Dioxide 22.3 Anion Gap 9 BUN 17 Creatinine 1.01 Estim Creat Clear Calc 101.28 Est GFR (MDRD) Non-Af 84 BUN/Creatinine Ratio 16.8 Glucose 76 Lactic Acid < 1.0 Calcium 9.5 Total Bilirubin 0.15 AST 26 ALT 25 Alkaline Phosphatase 67 Troponin T High Sens 9 Troponin T Hi Sens 2 Hr Total Protein 7.3 Albumin 4.2 Globulin 3.2 Albumin/Globulin Ratio 1.3 TSH 2.360 Urine Color Yellow Urine Clarity Sl. Cloudy Urine pH 6.0 Ur Specific [place] 1.015 Urine Protein 15 H Urine Glucose (UA) Normal Urine Ketones Negative Urine Occult Blood Negative Urine Nitrite Negative Urine Bilirubin Negative Urine Urobilinogen Normal Ur Leukocyte Esterase Negative Urine RBC 0 SEEN Urine WBC 0 SEEN Ur Squamous Epith Cells 0-5 SEEN Urine Bacteria 0 SEEN Urine Mucus 0 SEEN POC Glucose 103 08/17/24 22:11 WBC RBC Hgb Hct MCV MCH MCHC RDW Std Deviation RDW Coeff of [place] Plt Count MPV Immature Gran % (Auto) Neut % (Auto) Lymph % (Auto) [place] % (Auto) Eos % (Auto) Baso % (Auto) Absolute Neuts (auto) Absolute Lymphs (auto) Nucleated RBC % Sodium Potassium Chloride Carbon Dioxide Anion Gap BUN Creatinine Estim Creat Clear Calc Est GFR (MDRD) Non-Af BUN/Creatinine Ratio Glucose Lactic Acid Calcium Total Bilirubin AST ALT Alkaline Phosphatase Troponin T High Sens Troponin T Hi Sens 2 Hr 11 Total Protein Albumin Globulin Albumin/Globulin Ratio TSH Urine Color Urine Clarity Urine pH Ur Specific [place] Urine Protein Urine Glucose (UA) Urine Ketones Urine Occult Blood Urine Nitrite Urine Bilirubin Urine Urobilinogen Ur Leukocyte Esterase Urine RBC Urine WBC Ur Squamous Epith Cells Urine Bacteria Urine Mucus POC Glucose Radiography Diagnostic Testing: Clinical Impression(s) from Imaging Studies Chest X-Ray 08/17/24 19:40 IMPRESSION: Mild bibasilar atelectasis. No localizing infiltrate. Reading Location: [facility] Treatment and Re-Evaluation :: Patient was signed out to me while awaiting his delta troponin. The initial value was 9 the delta at 2 hours increased by a value of 2 points to a value of 11 which is not clinically significant and rules him out of the cardiac algorithm. Therefore this time his vitals have stabilized he does not have signs of ACS and he is otherwise safe for discharge. Discharge Plan Triage Chief Complaint: Alt LOC ED Provider: Scott Ayala Dx/Rx/DC Orders Clinical Impression: Sinus bradycardia seen on cardiac monitor technician, Hypothermia, Altered mental status, Schizoaffective disorder, Mild intellectual disabilities, DNR (do not resuscitate) Instructions: ED Bradycardia, ED Confusion Prescriptions: No Action aspirin [Adult Aspirin Regimen] 81 mg tablet,delayed release (DR/EC) 81 mg PO DAILY lorazepam [Ativan] 1 mg tablet 1 mg PO Q6H PRN (Reason: agitation) Patient Comments: Give with PO Fluphenazine benztropine 1 mg tablet 1 mg PO DAILY citalopram [Celexa] 20 mg tablet 20 mg PO DAILY clonazepam 0.5 mg tablet,disintegrating 0.5 mg PO TID brimonidine-timolol [Combigan] 0.2-0.5 % drops 1 drp EACH EYE BID fluphenazine HCl 2.5 mg/mL solution 2.5 mg IM Q6H Rx Instructions: to be given with IM ativan fluphenazine HCl 2.5 mg tablet 2.5 mg PO Q6H PRN (Reason: agitation) Rx Instructions: TO BE GIVEN WITH ATIVAN PO folic acid 400 mcg tablet 400 mcg PO DAILY haloperidol 2 mg tablet 2 mg PO TID haloperidol 1 mg tablet 1 mg PO TID latanoprost 0.005 % drops 1 drp EACH EYE DAILY lithium carbonate 450 mg tablet extended release 450 mg PO DAILY magnesium hydroxide [Milk of Magnesia] 400 mg/5 mL suspension 30 ml PO DAILY PRN (Reason: constipation) nicotine (polacrilex) 2 mg mini lozenge 2 mg buccal Q6H PRN (Reason: nicotine cravings) Rx Instructions: Give 1 lozenge Q2H PRN, do not exceed 8 lozenges per day nicotine 10 mg cartridge See Rx Instructions inhalation .COMPLEX PRN (Reason: cravings) Rx Instructions: 1 insert inhale orally every 2 hours as needed for smoking alternative. Do not exceed 8 cartridges per day. inhaled PRN; medroxyprogesterone [Provera] 5 mg tablet 5 mg PO DAILY Senna Plus 8.6-50 mg capsule 2 tab-cap PO QHS trazodone 100 mg tablet 100 mg PO DAILY acetaminophen [Tylenol Extra Strength] 500 mg tablet 500 mg PO Q4H PRN (Reason: fever or pain) verapamil 240 mg capsule,ext rel. pellets 24 hr 240 mg PO DAILY cholecalciferol (vitamin D3) 1,250 mcg (50,000 unit) capsule 1,250 mcg PO TU bisacodyl [Gentle Laxative (bisacodyl)] 10 mg suppository 10 mg IN DAILY PRN (Reason: constipation) fluticasone propionate [24 Hour Allergy Relief] 50 mcg/actuation spray,suspension 2 spray intranasal DAILY Rx Instructions: administer into each nostril cimetidine [Tagamet HB] 200 mg tablet 400 mg PO BID Rx Instructions: administer with meals Rocklatan 0.02-0.005 % drops 1 drp EACH EYE QHS lorazepam 2 mg/mL syringe 1 mg IM Q6H PRN (Reason: agitation) Rx Instructions: to be given with Fluphenazine IM fluphenazine HCl 10 mg tablet 10 mg PO QHS fluphenazine HCl 5 mg tablet 5 mg PO QHS Patient Comments: Patient takes a 10mg tablet and 5 mg table to equal 15mg total fluphenazine HCl 10 mg tablet 10 mg PO DAILY alum-mag hydroxide-simeth 200-200-20 mg/5 mL suspension 30 ml PO Q4H PRN (Reason: heartburn) amlodipine 5 mg tablet 5 mg PO DAILY Qty: 30 0RF atorvastatin [Lipitor] 40 mg tablet 40 mg PO DAILY Primary Care Provider: Rd Garcia Referrals: Rd Garcia MD [Primary Care Provider] - Print Language: Kazakh Disposition Disposition: Home, Self Care Discharge Date/Time: 08/18/24 00:15
--- NOTE | 2024-08-17 19:40 | RAD_ITS ---
PROCEDURE: CHEST 1 VIEW (PORTABLE) 08/17/2024 REASON FOR EXAM: RALES AT THE BASE TECHNIQUE: One-view chest COMPARISON: 06/30/2024 FINDINGS: Bronchial thickening. No developing infiltrate, effusion or pneumothorax. Persistent right elevated hemidiaphragm mild bibasilar atelectasis. No localizing infiltrate RAD/Chest 1 View (Portable) IMPRESSION: Mild bibasilar atelectasis. No localizing infiltrate. Reading Location: [id number]
[2024-08-17 19:53] LABS: Bedside Glucose 103 mg/dL (74-106)
[2024-08-17 19:55] LABS: Absolute Lymphocyte Count 2.05 X10^3/uL (0.83-4.51); Absolute Neutrophil Count 2.9 X10^3/uL (2.0-7.7); Basophil# 0.03 X10^3/uL; Basophil% 0.5 % (0-1); Eosinophil# 0.29 X10^3/uL; Eosinophils% 4.9 % (0-5); Hematocrit 39.4 % (40-54); Hemoglobin 12.8 g/dL (13.0-16.5); Lymphocyte # 2.05 X10^3/ul (0.83-4.51); Lymphocyte % 34.9 % (19-41); Mean Corp Hgb Conc 32.5 g/dL (32-36); Mean Corpuscular Hgb 32.4 pg (27.0-32.0); Mean Corpuscular Volume 99.7 fL (80-94); Mean Platelet Vol. 9.2 fl (6.2-12.0); Monocyte# 0.58 X10^3/uL; Monocyte% 9.9 % (0-10); NRBC Flagged by Analyzer 0 % (0-5); Neutrophil # 2.91 X10^3/uL (2.7-7.7); Neutrophil % 49.5 % (47-70); Platelet Count 276 K/mm3 (150-450); RBC Distribution Width CV 14.7 % (11.6-14.6); RBC Distribution Width SD 54.4 fl (35.1-43.9); Red Blood Count 3.95 M/mm3 (4.6-6.2); White Blood Count 5.9 K/mm3 (4.4-11.0)
[2024-08-17 20:11] LABS: Bacteria 0 SEEN /hpf (None Seen); Mucous, Urine 0 SEEN /hpf (<or=2+); White Blood Cells 0 SEEN /hpf (0-5)
[2024-08-17 20:16] LABS: Color, Urine Yellow (Yellow); Glucose, Dipstick Normal (Normal); Ketone-Dipstick Negative (Negative); Leukocyte Esterase-Dipstick Negative /ul (Negative); Nitrite-Dipstick Negative (Negative); Occult Blood-Urine Negative /ul (Negative); Protein-Dipstick 15 mg/dl (Negative); Specific Gravity, Urine 1.015 (1.002-1.030); Urine Bilirubin Dipstick Negative (Negative); Urine Clarity Sl. Cloudy (Clear); Urine Urobilinogen Normal (Normal)
[2024-08-17 20:20] LABS: ALB/GLOB Ratio 1.3 RATIO (0.9-2.4); AST(SGOT) 26 U/L (<=37); Alanine Aminotransfer ALT/SGPT 25 U/L (<=46); Albumin, Serum 4.2 g/dL (3.4-4.8); Alkaline Phosphatase 67 U/L (40-129); Anion Gap 9 (5-15); BUN 17 mg/dL (4-19); BUN/Creat Ratio 16.8 RATIO (10-20); Calcium,Total 9.5 mg/dL (7.6-11.0); Carbon Dioxide 22.3 mmol/L (21.0-32.0); Chloride 110 mmol/L (98-108); Creatinine, Serum 1.01 mg/dL (0.70-1.20); EST Glomerular Filtration Rate 84 (>60); Estimated Creatinine Clearance 101.28 ml/min (50-250); Globulin 3.2 g/dL (2.2-4.2); Glucose 76 mg/dL (70-99); Protein, Total 7.3 g/dL (5.9-8.4); Sodium Level 141 mmol/L (133-145); Total Bilirubin 0.15 mg/dL (0.00-1.30)
[2024-08-17 20:23] LABS: Red Blood Cells-Urine 0 SEEN /hpf (0-5); Squamous Epithelial Cells - UA 0-5 SEEN /hpf (0-5)
[2024-08-17 20:40] LABS: Lactic Acid < 1.0 mmol/L (0.0-2.0)
[2024-08-17 20:53] LABS: Troponin T High Sensitivity 9 ng/L (<=22)
[2024-08-17 22:38] LABS: Troponin T High Sens 2 HR 11 ng/L (<=22)
--- NOTE | 2024-08-17 23:40 | ED.RN ---
This RN informed Dr soriano of the patients rectal temp being low. Dr Soriano stated his labs ere totally normal and he is safe to go home.
--- NOTE | 2024-08-17 23:41 | ED.RN ---
This RN called report to Perla
--- NOTE | 2024-08-18 | ED.RN ---
Addendum entered by Bette Holm 08/18/24 00:36: Dr Bartlett was notified, assessed and deemed the patient safe [facility] to the [facility]. There was one small red leora on the patients right knee but was not bleeding. Jayro Ruiz filled out a quantros. This RN called the prison back and notified them of the fall. Original Note: This RN walked in to the patient on the ground on hands and knees. Jayro Ruiz, and Breann Mejia were at bedside assisting the patient to stand. The patient then walked to the bed and laid down. Earlier, the patient requested food and this RN stated we needed to wait for test results before he can eat and the patient attempted to grab this RN buttocks and this RN stated That is inappropriate and you will not touch me inappropriately. The pt mumbled something under his breath that this RN was not able to hear.
--- NOTE | 2024-08-18 00:37 | ED.RN ---
This RN removed the patient temperature rivera prior [facility] with [facility].
== END 2024-08-18 00:15 | disposition home or self-care (01) ==
PROVIDERS: Emergency Provider Emergency Medicine; PCP Family Medicine; Visit Provider Emergency Medicine
DX: R00.1 Bradycardia, unspecified (principal); F25.9 Schizoaffective disorder, unspecified; F31.81 Bipolar II disorder; J44.9 Chronic obstructive pulmonary disease, unspecified; E66.01 Morbid (severe) obesity due to excess calories; Z68.41 Body mass index [BMI] 40.0-44.9, adult; E11.51 Type 2 diabetes mellitus with diabetic peripheral angiopathy without gangrene; F70 Mild intellectual disabilities; R68.0 Hypothermia, not associated with low environmental temperature; R41.82 Altered mental status, unspecified; I10 Essential (primary) hypertension; E78.5 Hyperlipidemia, unspecified; D53.9 Nutritional anemia, unspecified; H40.1110 Primary open-angle glaucoma, right eye, stage unspecified; F17.210 Nicotine dependence, cigarettes, uncomplicated; Z66 Do not resuscitate; Z79.82 Long term (current) use of aspirin; Z79.899 Other long term (current) drug therapy
CPT/HCPCS: 51702; 71045; 80053; 81001; 82962; 83605; 84443; 84484; 85025; 93005; 99285; A4216

== ENCOUNTER → 2025-04-07 | Outpatient (CLI) | payer MEDICAID, SELFPAY ==
[2025-04-07 14:36] LABS: Hematocrit 40.6 % (40-54); Hemoglobin 13.4 g/dL (13.0-16.5); Mean Corp Hgb Conc 33.0 g/dL (32-36); Mean Corpuscular Volume 98.1 fL (80-94); Mean Platelet Vol. 9.3 fl (6.2-12.0); Platelet Count 335 K/mm3 (150-450); RBC Distribution Width CV 13.2 % (11.6-14.6); RBC Distribution Width SD 47.7 fl (35.1-43.9); Red Blood Count 4.14 M/mm3 (4.6-6.2); White Blood Count 6.2 K/mm3 (4.4-11.0)
[2025-04-07 14:58] LABS: Lithium 0.98 mmol/L (0.60-1.20)
[2025-04-07 15:07] LABS: AST(SGOT) 24 U/L (<=37); Alanine Aminotransfer ALT/SGPT 36 U/L (<=46); Albumin, Serum 4.5 g/dL (3.4-4.8); Alkaline Phosphatase 52 U/L (40-129); Anion Gap 9 (5-15); BUN 11 mg/dL (4-19); BUN/Creat Ratio 10.9 RATIO (10-20); Bilirubin, Direct 0.13 mg/dL (0.00-0.30); Calcium,Total 10.1 mg/dL (7.6-11.0); Carbon Dioxide 25.6 mmol/L (21.0-32.0); Chloride 104 mmol/L (98-108); Globulin 2.8 g/dL (2.2-4.2); Glucose 73 mg/dL (70-99); Potassium 4.4 mmol/L (3.3-5.1); T3 Total - Triiodothyronine 1.25 ng/mL (0.80-2.00); T4 Total, Thyroxin 6.2 ug/dL (4.5-12.1)
== END | disposition home or self-care (01) ==
LOC: LABSPEC 13:37
PROVIDERS: PCP Family Medicine; Referring Provider Family Medicine; Visit Provider Family Medicine
DX: J44.9 Chronic obstructive pulmonary disease, unspecified (principal); F25.9 Schizoaffective disorder, unspecified; D64.9 Anemia, unspecified; Z79.899 Other long term (current) drug therapy
CPT/HCPCS: 80053; 80178; 82248; 83036; 84100; 84436; 84443; 84480; 85027